=== PATIENT | female | born 1980 | race Caucasian/White ===

== ENCOUNTER 2018-08-30 14:57 | Inpatient (IN) | payer MEDICARE ==
[~2018-08-30] VITALS: Ht 162.6 cm; Wt 69.0 kg
--- NOTE | 2018-08-30 15:00 | NUR ---
patient arrives from [facility]. 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 medics gave 7.5 mg versed, 50 benadryl an zofran 4 mg. she arrives from [facility]. sh elives with parents she lives [address] [place] [address]. her parents are on cruise. gowned. in bed. rails up.
[2018-08-30] MEDS ORDERED: [UNRECOGNIZED DRUG - CODE] PO (15:23)
[2018-08-30] MEDS ORDERED: ONDA4TAB12 PO (15:23)
[2018-08-30] MEDS ORDERED: SUMA1TAB PO (15:23)
[2018-08-30] MEDS ORDERED: CHOL2000 PO (15:23)
[2018-08-30] MEDS ORDERED: FAMO20TA7 PO (15:23)
[2018-08-30] MEDS ORDERED: OMEP-110 PO (15:23)
[2018-08-30] MEDS ORDERED: LORA1TAB PO (15:23)
[2018-08-30] MEDS ORDERED: CARB200T4 PO (15:23)
[2018-08-30] MEDS ORDERED: ONDANSETRON 2MG/ML, 2ML ONE (16:39)
[2018-08-30] MEDS ORDERED: MORPHINE SULFATE 4 MG/ML, 1ML ONE ×2 (16:40→17:42)
[2018-08-30] MEDS: MORPHINE SULFATE 4 MG/ML, 1ML IVPush PRN ×2 (16:42→17:47)
--- NOTE | 2018-08-30 16:43 | NUR ---
requested valium from pharmacy, awaiting. patient tense and muscle spasming
[2018-08-30] MEDS ORDERED: DIPHENHYDRAMINE 50 MG/ML, 1ML ONE (16:57)
[2018-08-30] MEDS ORDERED: PLEASE ENTER ALLERGIES MC SCH (17:00)
[2018-08-30] MEDS ORDERED: DIAZEPAM 5 MG/ML, 2ML IV ONE (17:00)
[2018-08-30] MEDS ORDERED: ONDANSETRON 2MG/ML, 2ML IVPush ONE (17:00)
[2018-08-30] MEDS ORDERED: DIPHENHYDRAMINE 50 MG/ML, 1ML IVPush ONE (17:00)
--- NOTE | 2018-08-30 17:14 | NUR ---
patient feeling better after medications.
[2018-08-30 17:17] LABS: BASOPHILS # (AUTO) 0.04 x10^3/uL (0-0.1); BASOPHILS % (AUTO) 0 % (0-1); EOSINOPHILS # (AUTO) 0.09 x10^3/uL (0-0.4); EOSINOPHILS % (AUTO) 1 % (1-7); LYMPHOCYTES # (AUTO) 2.25 x10^3/uL (1-3.4); LYMPHOCYTES % (AUTO) 24 % (22-44); MD NO; MEAN CORPUSCULAR HGB CONC 34.7 g/dL (32.4-35.8); MEAN CORPUSCULAR VOLUME 89.4 fL (80-100); MEAN PLATELET VOLUME 7.2 fL (7.4-10.4); MONOCYTES # (AUTO) 0.71 x10^3/uL (0.2-0.8); MONOCYTES % (AUTO) 8 % (2-9); NEUTROPHILS # (AUTO) 6.31 x10^3/uL (1.8-6.8); NEUTROPHILS % (AUTO) 67 % (42-75); PLATELET COUNT 323 x10^3/uL (130-400); RED BLOOD COUNT 4.76 x10^6/uL (3.82-5.3); RED CELL DISTRIBUTION WIDTH 12.1 % (9.6-15.2)
[2018-08-30 17:30] LABS: ALBUMIN 4.5 g/dL (3.4-5.0); ANION GAP 8 mmol/L (5-15); CALCIUM 8.9 mg/dL (8.5-10.1); CHLORIDE 106 mmol/L (98-107)
[2018-08-30 17:34] LABS: ALANINE AMINOTRANSFERASE 33 U/L (12-78); ALKALINE PHOSPHATASE 92 U/L (45-117); BILIRUBIN,TOTAL 0.5 mg/dL (0.2-1.0); CREATININE 0.89 mg/dL (0.55-1.02); TOTAL PROTEIN 7.6 g/dL (6.4-8.2)
--- NOTE | 2018-08-30 18:12 | NUR ---
patient awaiting admission and bed.
[2018-08-30] MEDS ORDERED: CARB-139 PO (18:29)
[2018-08-30] MEDS ORDERED: METHOCARBAMOL 1,000 MG in DEXTROSE 5% 100 ML IV ONE (18:30)
--- NOTE | 2018-08-30 18:38 | NUR ---
calling for report
--- NOTE | 2018-08-30 18:39 | NUR ---
called to give report and they stated that this patient will go to a nightshift RN after 19:00
[2018-08-30] MEDS ORDERED: LABETALOL 5MG/ML, 20ML IVPush PRN (19:00)
[2018-08-30] MEDS ORDERED: LIDODERM 5% PATCH TD PRN (19:00)
[2018-08-30] MEDS ORDERED: BISACODYL 10 MG SUPP PR PRN (19:00)
[2018-08-30] MEDS ORDERED: ACETAMINOPHEN 325 MG TABLET PO PRN (19:00)
--- NOTE | 2018-08-30 19:13 | NUR ---
report given to karin cardenas
[2018-08-30 19:45] VITALS: BP 144/89
[2018-08-30] MEDS: ONDANSETRON ODT 4 MG PO PRN (20:21)
[2018-08-30] MEDS: KETOROLAC 30 MG/1 ML IV PRN (22:01)
[2018-08-30] MEDS: DIPHENHYDRAMINE 50 MG/ML, 1ML IVPush PRN (22:01)
[2018-08-30] MEDS: IMMUNE GLOB (GAMUNEX) 10GM/100ML IV SCH (22:02)
[2018-08-30] MEDS ORDERED: CARBAMAZEPINE XR 200 MG TABLET PO SCH (22:30)
[2018-08-30] MEDS ORDERED: POTA10TA11 PO (22:42)
[2018-08-30] MEDS ORDERED: AMIT25TA PO (22:44)
[2018-08-30] MEDS ORDERED: BACL5TAB PO (22:45)
[2018-08-30] MEDS: LORazepam 1MG TABLET PO SCH (22:46)
[2018-08-31] MEDS ORDERED: METOPROLOL TARTRATE 100 MG TABLET PO SCH
[2018-08-31] MEDS: FAMOTIDINE 20 MG TABLET PO SCH ×2 (00:31→21:13)
[2018-08-31] MEDS: CARBAMAZEPINE 200 MG TABLET PO SCH ×4 (00:31→21:13)
[2018-08-31] MEDS: AMITRIPTYLINE 25 MG TABLET PO SCH ×2 (00:31→21:13)
[2018-08-31 00:36] VITALS: BP 128/70
[2018-08-31] MEDS: KETOROLAC 30 MG/1 ML IV PRN ×2 (07:20→21:13)
[2018-08-31 07:46] VITALS: BP 117/81
[2018-08-31] MEDS: IMMUNE GLOB (GAMUNEX) 10GM/100ML IV SCH (10:00)
[2018-08-31] MEDS: OMEGA-3/FISH OIL CAPSULE PO SCH (10:01)
[2018-08-31] MEDS: LORazepam 1MG TABLET PO SCH ×3 (10:01→21:13)
[2018-08-31] MEDS: ONDANSETRON ODT 4 MG PO PRN ×2 (10:01→16:37)
[2018-08-31] MEDS: OMEPRAZOLE 20 MG CAPSULE.DR PO SCH (10:01)
[2018-08-31] MEDS: DIPHENHYDRAMINE 50 MG/ML, 1ML IVPush PRN (10:02)
[2018-08-31] MEDS: CHOLECALCIFEROL 1,000 UNIT TABLET PO SCH (10:02)
[2018-08-31 14:41] VITALS: BP 127/89
[2018-08-31 18:39] VITALS: BP 137/105
[2018-08-31] MEDS: METOPROLOL TARTRATE 100 MG TABLET PO SCH (18:42)
[2018-08-31] MEDS ORDERED: FAMOTIDINE 20 MG TABLET PO SCH (21:00)
[2018-09-01 02:00] VITALS: BP 118/79
[2018-09-01] MEDS ORDERED: METOPROLOL TARTRATE 100 MG TABLET PO SCH ×2 (06:00)
[2018-09-01] MEDS: ONDANSETRON ODT 4 MG PO PRN (06:26)
[2018-09-01] MEDS: KETOROLAC 30 MG/1 ML IV PRN (06:26)
[2018-09-01] MEDS ORDERED: IMMUNE GLOBULIN 80 GM in VIAL 0 EACH IV ONE (07:00)
[2018-09-01] MEDS: DIPHENHYDRAMINE 50 MG/ML, 1ML IVPush PRN (07:18)
[2018-09-01] MEDS ORDERED: POTASSIUM CHLORIDE 20 MEQ TAB.ER.PRT PO SCH (08:00)
[2018-09-01] MEDS: CHOLECALCIFEROL 1,000 UNIT TABLET PO SCH (08:29)
[2018-09-01] MEDS: OMEPRAZOLE 20 MG CAPSULE.DR PO SCH (08:29)
[2018-09-01] MEDS: LORazepam 1MG TABLET PO SCH ×2 (08:30→16:06)
[2018-09-01] MEDS: CARBAMAZEPINE 200 MG TABLET PO SCH ×2 (08:30→16:06)
[2018-09-01] MEDS: OMEGA-3/FISH OIL CAPSULE PO SCH (08:30)
[2018-09-01 08:34] VITALS: BP 136/94
[2018-09-01] MEDS ORDERED: DOCUSATE 100 MG CAPSULE PO SCH (09:00)
[2018-09-01 12:34] VITALS: BP 138/93
[2018-09-01] MEDS: METOPROLOL TARTRATE 100 MG TABLET PO SCH (18:00)
[2018-09-01 18:15] VITALS: BP 155/108
== END 2018-09-01 18:20 | disposition home or self-care (01) | DRG 93 ==
LOC: ED 16:12 → EDIP 18:03 → 3NE 19:25
PROVIDERS: ADMIT Hospitalist; ATTEND Hospitalist
PROC: 30233S1 Transfusion of Nonautologous Globulin into Peripheral Vein, Percutaneous Approach (ICD-10-PCS; principal; 2018-08-31)
DX: G71.19 Other specified myotonic disorders (principal); G43.909 Migraine, unspecified, not intractable, without status migrainosus; G72.81 Critical illness myopathy; I10 Essential (primary) hypertension
CPT/HCPCS: 36415; 80053; 82550; 85025; 96374; 96375; 96376; G0378; J1561; J1885; J2405; J3360; Q0162; J1200; J2800

== ENCOUNTER 2019-02-23 12:53 | Observation (INO) | payer MEDICARE ==
[~2019-02-23] VITALS: Ht 162.6 cm; Wt 61.1 kg
[~2019-02-23 12:53] MED LIST: AMIT25TA PO; BACL5TAB PO; CARB-139 PO; CARB200T4 PO; CHOL2000 PO; FAMO20TA7 PO; LORA1TAB PO; OMEP-110 PO; ONDA4TAB12 PO; POTA10TA11 PO; SUMA1TAB PO; [UNRECOGNIZED DRUG - CODE] PO
--- NOTE | 2019-02-23 13:25 | NUR ---
pt to ed for dizziness and head pressure since this morning, s/s worse with left lateral gaze. left sided weakness and left sided droop. pt states no changes from baseline. pt states recent change in tegretol dose. pt connected to monitors. vss. edmd present for assessment. awaiting orders.
[2019-02-23] MEDS ORDERED: DICYCLOMINE 20 MG TABLET PO ONE (13:30)
[2019-02-23] MEDS ORDERED: ONDANSETRON ODT 4 MG PO ONE (13:30)
[2019-02-23] MEDS ORDERED: LOPERAMIDE 2 MG CAPSULE PO ONE (13:30)
[2019-02-23] MEDS ORDERED: MECLIZINE CHEWABLE 25 MG TAB ONE (13:38)
--- NOTE | 2019-02-23 13:41 | NUR ---
edmd assessment complete and orders recevied. pt medicated per oct. no needseat this time. awaiting ct.
[2019-02-23 13:59] LABS: BASOPHILS # (AUTO) 0.05 x10^3/uL (0-0.1); BASOPHILS % (AUTO) 1 % (0-1); EOSINOPHILS # (AUTO) 0.11 x10^3/uL (0-0.4); EOSINOPHILS % (AUTO) 2 % (1-7); LYMPHOCYTES # (AUTO) 1.13 x10^3/uL (1-3.4); LYMPHOCYTES % (AUTO) 19 % (22-44); MD NO; MEAN CORPUSCULAR HEMOGLOBIN 31.1 pg (27.0-34.8); MEAN CORPUSCULAR HGB CONC 34.3 g/dL (32.4-35.8); MEAN CORPUSCULAR VOLUME 90.8 fL (80-100); MONOCYTES # (AUTO) 0.49 x10^3/uL (0.2-0.8); MONOCYTES % (AUTO) 8 % (2-9); NEUTROPHILS # (AUTO) 4.08 x10^3/uL (1.8-6.8); NEUTROPHILS % (AUTO) 70 % (42-75); PLATELET COUNT 296 x10^3/uL (130-400); RED BLOOD COUNT 3.97 x10^6/uL (3.82-5.3); RED CELL DISTRIBUTION WIDTH 12.6 % (9.6-15.2)
[2019-02-23] MEDS ORDERED: MECLIZINE CHEWABLE 25 MG TAB PO ONE (14:00)
[2019-02-23] MEDS ORDERED: SODIUM CHLORIDE FLUSH 10ML SYR IVF ONE (14:00)
--- NOTE | 2019-02-23 14:05 | NUR ---
pt back from ct.
[2019-02-23 14:10] LABS: ALANINE AMINOTRANSFERASE 33 U/L (12-78); ALBUMIN 3.5 g/dL (3.4-5.0); ANION GAP 6 mmol/L (5-15); CALCIUM 8.4 mg/dL (8.5-10.1); CHLORIDE 105 mmol/L (98-107)
[2019-02-23 14:15] LABS: ALKALINE PHOSPHATASE 83 U/L (45-117); BILIRUBIN,TOTAL 0.4 mg/dL (0.2-1.0); CREATININE 0.93 mg/dL (0.55-1.02); TOTAL PROTEIN 9.6 g/dL (6.4-8.2); TROPONIN I 0.025 ng/mL (0.000-0.045)
--- NOTE | 2019-02-23 14:26 | NUR ---
pt resting in room wtih family at bs. vss. no needs expressed. awaiting lab results.
[2019-02-23] MEDS ORDERED: BENZ200C48 PO (14:52)
[2019-02-23] MEDS ORDERED: ALBU2.5V NEB (14:52)
[2019-02-23] MEDS ORDERED: METO-99 PO (14:57)
[2019-02-23] MEDS ORDERED: DIPH25CA61 PO (15:02)
[2019-02-23] MEDS ORDERED: ONDANSETRON ODT 4 MG PO PRN (15:30)
[2019-02-23] MEDS ORDERED: ONDANSETRON 2MG/ML, 2ML IVPush PRN (15:30)
[2019-02-23] MEDS ORDERED: AMITRIPTYLINE 25 MG TABLET PO PRN (15:30)
[2019-02-23] MEDS ORDERED: SUMATRIPTAN 25 MG TABLET PO PRN (15:30)
[2019-02-23] MEDS ORDERED: BISACODYL 10 MG SUPP PR PRN (15:30)
[2019-02-23] MEDS ORDERED: LABETALOL 5MG/ML, 20ML IVPush PRN (15:30)
[2019-02-23] MEDS ORDERED: DIPHENHYDRAMINE 25 MG CAPSULE PO PRN (15:30)
[2019-02-23] MEDS ORDERED: ENALAPRILAT 1.25 MG/ML, 2ML IVPush PRN (15:30)
[2019-02-23] MEDS ORDERED: POLYETHYLENE GLYCOL 17 GM PACKET PO PRN (15:30)
[2019-02-23] MEDS ORDERED: ACETAMINOPHEN 325 MG TABLET PO PRN (15:30)
[2019-02-23] MEDS ORDERED: DOCUSATE 100 MG CAPSULE PO PRN (15:30)
--- NOTE | 2019-02-23 15:58 | NUR ---
report to jamaal garcia. pt ready for transport.
[2019-02-23] MEDS ORDERED: MECLIZINE CHEWABLE 25 MG TAB PO PRN (16:00)
[2019-02-23 16:19] VITALS: BP 137/95
[2019-02-23 16:21] VITALS: BP 137/95
[2019-02-23] MEDS: CARBAMAZEPINE XR 200 MG TABLET PO SCH ×2 (16:50→20:46)
[2019-02-23 17:46] LABS: TROPONIN I 0.022 ng/mL (0.000-0.045)
[2019-02-23 17:51] LABS: THYROID STIMULATING HORMONE 0.752 mIU/L (0.358-3.740)
[2019-02-23] MEDS ORDERED: SUMATRIPTAN 100 MG TABLET PO PRN (18:00)
[2019-02-23] MEDS ORDERED: LORazepam 1MG TABLET PO PRN (18:00)
[2019-02-23 19:13] VITALS: BP 125/85
[2019-02-23] MEDS: POTASSIUM CHLORIDE 20 MEQ TAB.ER.PRT PO SCH (20:46)
[2019-02-23] MEDS ORDERED: FAMOTIDINE 20 MG TABLET PO SCH (21:00)
[2019-02-24 01:03] VITALS: BP 134/83
[2019-02-24 07:06] VITALS: BP 150/95
[2019-02-24] MEDS ORDERED: GADOBUTROL 7.5 MMOL/7.5 ML PFS ONE (08:52)
[2019-02-24] MEDS ORDERED: OMEGA-3/FISH OIL CAPSULE PO SCH (09:00)
[2019-02-24] MEDS ORDERED: METOPROLOL TARTRATE 100 MG TABLET PO SCH (09:00)
[2019-02-24] MEDS ORDERED: CHOLECALCIFEROL 1,000 UNIT TABLET PO SCH (09:00)
[2019-02-24] MEDS ORDERED: OMEPRAZOLE 20 MG CAPSULE.DR PO SCH (09:00)
[2019-02-24] MEDS: POTASSIUM CHLORIDE 20 MEQ TAB.ER.PRT PO SCH (09:12)
[2019-02-24] MEDS: CARBAMAZEPINE XR 200 MG TABLET PO SCH (09:12)
[2019-02-24 10:24] LABS: BASOPHILS # (AUTO) 0.02 x10^3/uL (0-0.1); BASOPHILS % (AUTO) 0 % (0-1); EOSINOPHILS # (AUTO) 0.14 x10^3/uL (0-0.4); EOSINOPHILS % (AUTO) 3 % (1-7); LYMPHOCYTES # (AUTO) 1.14 x10^3/uL (1-3.4); LYMPHOCYTES % (AUTO) 24 % (22-44); MD NO; MEAN CORPUSCULAR HEMOGLOBIN 31.7 pg (27.0-34.8); MEAN CORPUSCULAR HGB CONC 34.6 g/dL (32.4-35.8); MEAN CORPUSCULAR VOLUME 91.7 fL (80-100); MEAN PLATELET VOLUME 7.4 fL (7.4-10.4); MONOCYTES # (AUTO) 0.46 x10^3/uL (0.2-0.8); MONOCYTES % (AUTO) 10 % (2-9); NEUTROPHILS % (AUTO) 63 % (42-75); PLATELET COUNT 317 x10^3/uL (130-400); RED BLOOD COUNT 4.07 x10^6/uL (3.82-5.3); RED CELL DISTRIBUTION WIDTH 12.5 % (9.6-15.2)
[2019-02-24 10:28] LABS: ANION GAP 8 mmol/L (5-15); CALCIUM 8.6 mg/dL (8.5-10.1); CHLORIDE 106 mmol/L (98-107)
[2019-02-24 10:29] LABS: CREATININE 0.83 mg/dL (0.55-1.02)
== END 2019-02-24 13:07 | disposition home or self-care (01) ==
LOC: ED 15:24 → INTOOBSV 15:35 → EDIP 15:35 → 4EST 15:56 → DCLOUNGE 02-24 13:07
PROVIDERS: ADMIT Hospitalist; ATTEND Hospitalist
DX: R55 Syncope and collapse (principal); I10 Essential (primary) hypertension; I16.0 Hypertensive urgency; H53.9 Unspecified visual disturbance; G71.19 Other specified myotonic disorders; G89.29 Other chronic pain; R56.9 Unspecified convulsions; G04.81 Other encephalitis and encephalomyelitis; Z79.899 Other long term (current) drug therapy
CPT/HCPCS: 36415; 70450; 70553; 80048; 80053; 80156; 84443; 84484; 85025; 93005; 99284; A9585; G0378; Q0162; 99285

== ENCOUNTER 2019-06-18 09:09 | Emergency (ER) | payer MEDICARE ==
[~2019-06-18] VITALS: Ht 162.6 cm; Wt 52.3 kg
[~2019-06-18 09:09] MED LIST changes: +ALBU2.5V NEB; +BENZ200C48 PO; +DIPH25CA61 PO; +METO-99 PO
[2019-06-18] MEDS ORDERED: ONDANSETRON 2MG/ML, 2ML IVPush ONE (09:30)
[2019-06-18] MEDS ORDERED: SODIUM CHLORIDE 0.9% 1,000ML IVBOLUS ONE (09:30)
[2019-06-18] MEDS ORDERED: FAMOTIDINE 20 MG/2 ML IVPush ONE (09:30)
[2019-06-18] MEDS ORDERED: SODIUM CHLORIDE FLUSH 10ML SYR IVF ONE (09:30)
[2019-06-18 09:56] LABS: BASOPHILS # (AUTO) 0.01 x10^3/uL (0-0.1); BASOPHILS % (AUTO) 0 % (0-1); EOSINOPHILS # (AUTO) 0.07 x10^3/uL (0-0.4); EOSINOPHILS % (AUTO) 1 % (1-7); LYMPHOCYTES # (AUTO) 0.63 x10^3/uL (1-3.4); LYMPHOCYTES % (AUTO) 10 % (22-44); MD NO; MEAN CORPUSCULAR VOLUME 91.2 fL (80-100); MEAN PLATELET VOLUME 7.4 fL (7.4-10.4); MONOCYTES % (AUTO) 7 % (2-9); NEUTROPHILS # (AUTO) 4.99 x10^3/uL (1.8-6.8); NEUTROPHILS % (AUTO) 82 % (42-75); PLATELET COUNT 259 x10^3/uL (130-400); RED BLOOD COUNT 4.33 x10^6/uL (3.82-5.3); RED CELL DISTRIBUTION WIDTH 14.1 % (9.6-15.2)
[2019-06-18] MEDS ORDERED: FAMOTIDINE 20 MG/2 ML ONE (10:01)
[2019-06-18] MEDS ORDERED: ONDANSETRON 2MG/ML, 2ML ONE (10:01)
[2019-06-18 10:06] LABS: ALANINE AMINOTRANSFERASE 30 U/L (12-78); ALBUMIN 4.1 g/dL (3.4-5.0); ANION GAP 5 mmol/L (5-15); CALCIUM 8.5 mg/dL (8.5-10.1); CHLORIDE 106 mmol/L (98-107); CREATININE 0.95 mg/dL (0.55-1.02)
[2019-06-18 10:11] LABS: ALKALINE PHOSPHATASE 70 U/L (45-117); BILIRUBIN,TOTAL 0.9 mg/dL (0.2-1.0); TOTAL PROTEIN 8.4 g/dL (6.4-8.2)
--- NOTE | 2019-06-18 10:13 | NUR ---
PT COMPLAINS OF N/V/D X 24 HOURS. PT THREW UP ZOFRAN AT HOME, NO RELIEF FROM PRN MEDICATIONS. CHEST PORT ACCESSED, MASKS AT BEDSIDE. IV FLUIDS AND MEDICATIONS STARTED PER ORDERS. PT DENIES ANY FURTHER NEEDS OR CONCERNS AT THIS TIME. CALL LIGHT IN REACH.
[2019-06-18] MEDS ORDERED: DIPHENHYDRAMINE 50 MG/ML, 1ML IVPush PRN (11:30)
[2019-06-18] MEDS ORDERED: LORazepam 2 MG/ML, 1ML IVPush ONE (11:30)
[2019-06-18] MEDS ORDERED: LORazepam 2 MG/ML, 1ML ONE (11:43)
[2019-06-18] MEDS ORDERED: DIPHENHYDRAMINE 50 MG/ML, 1ML ONE (11:43)
[2019-06-18 11:50] LABS: MICROSCOPIC AUTO
[2019-06-18 11:51] LABS: CULTURE INDICATED? YES
[2019-06-18 12:49] VITALS: BP 148/99
[2019-06-19] MEDS ORDERED: IMMU20VI IV (16:06)
== END 2019-06-18 12:50 | disposition home or self-care (01) ==
LOC: ED 10:39
DX: K52.9 Noninfective gastroenteritis and colitis, unspecified (principal); I10 Essential (primary) hypertension
CPT/HCPCS: 36415; 80053; 81001; 83690; 84703; 85025; 87086; 96361; 96374; 96375; 99283; J1200; J2060; J2405; J3490; J7030

== ENCOUNTER 2019-06-19 12:45 | Inpatient (IN) | payer MEDICARE ==
[~2019-06-19] VITALS: Ht 162.6 cm; Wt 58.2 kg
--- NOTE | 2019-06-19 13:10 | NUR ---
PATIENT MAYTE IN BY TIM. TIM WAS CALLED BY HER ROOMATE WHO FOUND HER UNRESPONSIVE AND STATED THAT SHE HAS NEVER SEEN HER LIKE THIS. MOTHER IS AT BEDSIDE AND SHE STATES THAT BANG HAS THESE EPISODES MULTIPLE TIMES A DAY AND HER CURRENT STATUS IS NORMAL FOR HER. SHE STATES THAT SHE WILL COME OUT OF IT. EPISODES PRECIPITATED BY STRESS, ILLNESS AND SUDDEN ENVIROMENTAL CHANGES (SOMEONE SCARING HER). PATIENT SPEAKS IN SLOW SLURRED SENTENCES BUT IS BREATHING NORMALLY. BANG IS ABLE TO TEXT THAT SHE IS IN 8/10 PAIN.
[2019-06-19] MEDS ORDERED: LORazepam 2 MG/ML, 1ML IVPush ONE (14:00)
[2019-06-19] MEDS ORDERED: HYDROmorphone 1 MG/ML, 1ML INJ IVPush PRN (14:00)
[2019-06-19] MEDS ORDERED: ONDANSETRON 2MG/ML, 2ML IVPush ONE (14:00)
[2019-06-19] MEDS ORDERED: DIPHENHYDRAMINE 50 MG/ML, 1ML IVPush ONE (14:00)
[2019-06-19] MEDS ORDERED: LORazepam 2 MG/ML, 1ML ONE (14:15)
[2019-06-19] MEDS ORDERED: DIPHENHYDRAMINE 50 MG/ML, 1ML ONE ×2 (14:16→18:56)
[2019-06-19] MEDS ORDERED: HYDROmorphone 1 MG/ML, 1ML VIAL ONE (14:16)
[2019-06-19] MEDS ORDERED: ONDANSETRON 2MG/ML, 2ML ONE (14:16)
[2019-06-19] MEDS ORDERED: SODIUM CHLORIDE FLUSH 10ML SYR IVF ONE (14:30)
--- NOTE | 2019-06-19 14:32 | NUR ---
PATIENT PLACED ON BED DICKERSON.
[2019-06-19 14:44] LABS: BASOPHILS # (AUTO) 0.01 x10^3/uL (0-0.1); BASOPHILS % (AUTO) 0 % (0-1); EOSINOPHILS # (AUTO) 0.07 x10^3/uL (0-0.4); EOSINOPHILS % (AUTO) 1 % (1-7); LYMPHOCYTES # (AUTO) 1.08 x10^3/uL (1-3.4); LYMPHOCYTES % (AUTO) 17 % (22-44); MD NO; MEAN CORPUSCULAR HEMOGLOBIN 31.5 pg (27.0-34.8); MEAN CORPUSCULAR HGB CONC 34.1 g/dL (32.4-35.8); MEAN CORPUSCULAR VOLUME 92.3 fL (80-100); MEAN PLATELET VOLUME 7.7 fL (7.4-10.4); MONOCYTES % (AUTO) 6 % (2-9); NEUTROPHILS % (AUTO) 75 % (42-75); PLATELET COUNT 266 x10^3/uL (130-400)
[2019-06-19 14:47] LABS: ALBUMIN 3.8 g/dL (3.4-5.0); ANION GAP 3 mmol/L (5-15); CALCIUM 8.6 mg/dL (8.5-10.1); CHLORIDE 111 mmol/L (98-107)
[2019-06-19 14:50] LABS: ALANINE AMINOTRANSFERASE 31 U/L (12-78); ALKALINE PHOSPHATASE 64 U/L (45-117); BILIRUBIN,TOTAL 0.5 mg/dL (0.2-1.0); CREATINE KINASE, TOTAL 186 U/L (26-192); CREATININE 0.83 mg/dL (0.55-1.02); TOTAL PROTEIN 7.6 g/dL (6.4-8.2)
--- NOTE | 2019-06-19 14:52 | NUR ---
PATIENT MEDICATED WITH 1MG OF DILAUDID, 1MG OF ATIVAN, 50MG BENADRYL, 4MG OF ZOFRAN.
--- NOTE | 2019-06-19 16:00 | NUR ---
PATIENT IN ROOM CONVERSATING WITH STAFF. HER PHYSICAL STATUS HAS IMPROVED SINCE ARRIVAL. DENIES FURTHER NEEDS AT THIS TIME. WILL CONTINUE TO MONITOR.
[2019-06-19] MEDS ORDERED: IMMU20VI IV (16:06)
--- NOTE | 2019-06-19 16:55 | NUR ---
ADMITTING PROVIDER AT BEDSIDE.
--- NOTE | 2019-06-19 17:12 | NUR ---
SBAR TELEPHONE HAND-OFF REPORT GIVEN TO KIM SAAVEDRA.
[2019-06-19] MEDS ORDERED: IMMUNE GLOB IV SCH (17:30)
[2019-06-19] MEDS ORDERED: ONDANSETRON ODT 4 MG PO PRN (17:30)
[2019-06-19] MEDS ORDERED: LORazepam 1MG TABLET PO PRN (17:30)
[2019-06-19] MEDS ORDERED: LORazepam 2 MG/ML, 1ML IVPush PRN (17:30)
[2019-06-19] MEDS: IMMUNE GLOBULIN 60 GM in VIAL 0 EACH IV SCH (18:00)
[2019-06-19] MEDS: SODIUM CHLORIDE 0.9% 1,000 ML IV SCH (18:16)
[2019-06-19 20:00] VITALS: BP 139/93
[2019-06-19] MEDS: FAMOTIDINE 40 MG TABLET PO SCH (21:44)
[2019-06-19 22:41] VITALS: BP 120/85
[2019-06-20] MEDS: DIPHENHYDRAMINE 25 MG CAPSULE PO PRN ×2 (00:25→06:32)
[2019-06-20] MEDS: AMITRIPTYLINE 25 MG TABLET PO PRN ×2 (00:25→23:12)
[2019-06-20] MEDS: IMMUNE GLOBULIN 60 GM in VIAL 0 EACH IV SCH (00:28)
[2019-06-20 01:41] VITALS: BP 117/84
[2019-06-20 01:50] VITALS: BP 109/73
[2019-06-20 04:02] VITALS: BP 125/86
[2019-06-20 05:10] LABS: ALBUMIN 3.4 g/dL (3.4-5.0); ANION GAP 4 mmol/L (5-15); CALCIUM 8.2 mg/dL (8.5-10.1); CHLORIDE 106 mmol/L (98-107)
[2019-06-20 05:15] LABS: ALANINE AMINOTRANSFERASE 23 U/L (12-78); ALKALINE PHOSPHATASE 55 U/L (45-117); BILIRUBIN,TOTAL 0.4 mg/dL (0.2-1.0); CREATININE 1.05 mg/dL (0.55-1.02); TOTAL PROTEIN 8.1 g/dL (6.4-8.2)
[2019-06-20 05:16] LABS: BASOPHILS # (AUTO) 0.02 x10^3/uL (0-0.1); BASOPHILS % (AUTO) 1 % (0-1); EOSINOPHILS # (AUTO) 0.18 x10^3/uL (0-0.4); EOSINOPHILS % (AUTO) 4 % (1-7); LYMPHOCYTES # (AUTO) 1.14 x10^3/uL (1-3.4); LYMPHOCYTES % (AUTO) 26 % (22-44); MD NO; MEAN CORPUSCULAR HEMOGLOBIN 30.9 pg (27.0-34.8); MEAN CORPUSCULAR HGB CONC 33.5 g/dL (32.4-35.8); MEAN CORPUSCULAR VOLUME 92.4 fL (80-100); MEAN PLATELET VOLUME 7.8 fL (7.4-10.4); MONOCYTES # (AUTO) 0.61 x10^3/uL (0.2-0.8); MONOCYTES % (AUTO) 14 % (2-9); NEUTROPHILS # (AUTO) 2.47 x10^3/uL (1.8-6.8); NEUTROPHILS % (AUTO) 56 % (42-75); PLATELET COUNT 246 x10^3/uL (130-400); RED BLOOD COUNT 3.83 x10^6/uL (3.82-5.3); RED CELL DISTRIBUTION WIDTH 13.9 % (9.6-15.2)
[2019-06-20 06:45] VITALS: BP 135/87
[2019-06-20] MEDS: CHOLECALCIFEROL 1,000 UNIT TABLET PO SCH (07:49)
[2019-06-20] MEDS: METOPROLOL TARTRATE 100 MG TABLET PO SCH (07:50)
[2019-06-20] MEDS: OMEPRAZOLE 20 MG CAPSULE.DR PO SCH (07:51)
[2019-06-20] MEDS ORDERED: DIPH25CA61 PO (07:57)
[2019-06-20] MEDS: SODIUM CHLORIDE 0.9% 1,000 ML IV SCH ×2 (08:05→17:05)
[2019-06-20] MEDS ORDERED: DIPHENHYDRAMINE 50 MG CAPSULE PO PRN (09:00)
[2019-06-20] MEDS: SUMATRIPTAN SUCC PO SCH (09:00)
[2019-06-20] MEDS: [UNRECOGNIZED DRUG - OTHER] PO SCH (09:00)
[2019-06-20] MEDS ORDERED: ONDANSETRON 4 MG TABLET PO SCH (09:00)
[2019-06-20] MEDS: NAPROXEN SOD PO SCH (09:00)
[2019-06-20] MEDS: ONDANSETRON 4 MG TABLET PO SCH (10:05)
[2019-06-20] MEDS: POTASSIUM CHLORIDE 20 MEQ TAB.ER.PRT PO SCH (10:06)
[2019-06-20 12:48] VITALS: BP 134/92
[2019-06-20] MEDS: ONDANSETRON 2MG/ML, 2ML IVPush PRN ×2 (16:59→23:13)
[2019-06-20] MEDS: LORazepam 2 MG/ML, 1ML IVPush PRN ×2 (16:59→23:13)
[2019-06-20] MEDS: DIPHENHYDRAMINE 50 MG/ML, 1ML IVPush PRN ×2 (17:52→23:13)
[2019-06-20 19:08] VITALS: BP 108/69
[2019-06-20] MEDS ORDERED: AMITRIPTYLINE 50 MG TABLET ONE (23:05)
[2019-06-20] MEDS: ACETAMINOPHEN 325 MG TABLET PO PRN (23:12)
[2019-06-20] MEDS: FAMOTIDINE 40 MG TABLET PO SCH (23:12)
[2019-06-21] VITALS (7 sets, daily range): BP systolic 120–148; BP diastolic 82–100
[2019-06-21] MEDS ORDERED: LORazepam 2 MG/ML, 1ML IVPush ONE (02:00)
[2019-06-21] MEDS: IMMUNE GLOBULIN 60 GM in VIAL 0 EACH IV SCH (05:10)
[2019-06-21] MEDS: SODIUM CHLORIDE 0.9% 1,000 ML IV SCH ×2 (05:18→20:29)
[2019-06-21] MEDS: LORazepam 2 MG/ML, 1ML IVPush PRN ×4 (05:27→20:28)
[2019-06-21] MEDS: ACETAMINOPHEN 325 MG TABLET PO PRN (05:27)
[2019-06-21] MEDS: ONDANSETRON 2MG/ML, 2ML IVPush PRN ×2 (05:27→15:15)
[2019-06-21] MEDS: DIPHENHYDRAMINE 50 MG/ML, 1ML IVPush PRN ×3 (05:27→20:28)
[2019-06-21 07:21] LABS: ALANINE AMINOTRANSFERASE 21 U/L (12-78); ALBUMIN 3.4 g/dL (3.4-5.0); ANION GAP 6 mmol/L (5-15); CALCIUM 8.3 mg/dL (8.5-10.1); CHLORIDE 108 mmol/L (98-107)
[2019-06-21 07:24] LABS: ALKALINE PHOSPHATASE 54 U/L (45-117); BILIRUBIN,TOTAL 0.4 mg/dL (0.2-1.0); CREATININE 0.94 mg/dL (0.55-1.02); TOTAL PROTEIN 9.1 g/dL (6.4-8.2)
[2019-06-21 07:27] LABS: BASOPHILS # (AUTO) 0.02 x10^3/uL (0-0.1); BASOPHILS % (AUTO) 1 % (0-1); EOSINOPHILS # (AUTO) 0.09 x10^3/uL (0-0.4); EOSINOPHILS % (AUTO) 3 % (1-7); LYMPHOCYTES # (AUTO) 0.72 x10^3/uL (1-3.4); LYMPHOCYTES % (AUTO) 21 % (22-44); MD NO; MEAN CORPUSCULAR VOLUME 91.1 fL (80-100); MONOCYTES # (AUTO) 0.36 x10^3/uL (0.2-0.8); MONOCYTES % (AUTO) 11 % (2-9); NEUTROPHILS % (AUTO) 65 % (42-75); PLATELET COUNT 218 x10^3/uL (130-400); RED CELL DISTRIBUTION WIDTH 13.7 % (9.6-15.2)
[2019-06-21] MEDS: [UNRECOGNIZED DRUG - OTHER] PO SCH (09:00)
[2019-06-21] MEDS: NAPROXEN SOD PO SCH (09:00)
[2019-06-21] MEDS: SUMATRIPTAN SUCC PO SCH (09:00)
[2019-06-21] MEDS: METOPROLOL TARTRATE 100 MG TABLET PO SCH (10:15)
[2019-06-21] MEDS: POTASSIUM CHLORIDE 20 MEQ TAB.ER.PRT PO SCH (10:15)
[2019-06-21] MEDS: CHOLECALCIFEROL 1,000 UNIT TABLET PO SCH (10:15)
[2019-06-21] MEDS: OMEPRAZOLE 20 MG CAPSULE.DR PO SCH (10:15)
[2019-06-21] MEDS: ONDANSETRON 4 MG TABLET PO SCH (10:18)
[2019-06-21] MEDS: FAMOTIDINE 40 MG TABLET PO SCH (20:28)
[2019-06-21] MEDS ORDERED: AMITRIPTYLINE 50 MG TABLET ONE (20:32)
[2019-06-21] MEDS: AMITRIPTYLINE 25 MG TABLET PO PRN (20:35)
[2019-06-22] MEDS: DIPHENHYDRAMINE 50 MG/ML, 1ML IVPush PRN ×3 (01:35→12:31)
[2019-06-22] MEDS: ONDANSETRON 2MG/ML, 2ML IVPush PRN ×2 (01:35→07:47)
[2019-06-22] MEDS: LORazepam 2 MG/ML, 1ML IVPush PRN ×3 (01:35→12:31)
[2019-06-22 01:55] VITALS: BP 138/96
[2019-06-22 05:55] LABS: BASOPHILS # (AUTO) 0.02 x10^3/uL (0-0.1); BASOPHILS % (AUTO) 1 % (0-1); EOSINOPHILS % (AUTO) 3 % (1-7); LYMPHOCYTES # (AUTO) 0.84 x10^3/uL (1-3.4); LYMPHOCYTES % (AUTO) 24 % (22-44); MD NO; MEAN CORPUSCULAR HEMOGLOBIN 31.2 pg (27.0-34.8); MEAN CORPUSCULAR HGB CONC 34.5 g/dL (32.4-35.8); MEAN CORPUSCULAR VOLUME 90.4 fL (80-100); MONOCYTES # (AUTO) 0.44 x10^3/uL (0.2-0.8); MONOCYTES % (AUTO) 12 % (2-9); NEUTROPHILS # (AUTO) 2.19 x10^3/uL (1.8-6.8); NEUTROPHILS % (AUTO) 61 % (42-75); PLATELET COUNT 223 x10^3/uL (130-400); RED BLOOD COUNT 3.77 x10^6/uL (3.82-5.3); RED CELL DISTRIBUTION WIDTH 13.2 % (9.6-15.2)
[2019-06-22 06:07] LABS: ALBUMIN 3.3 g/dL (3.4-5.0); ANION GAP 4 mmol/L (5-15); CALCIUM 8.2 mg/dL (8.5-10.1); CHLORIDE 106 mmol/L (98-107)
[2019-06-22 06:12] LABS: ALANINE AMINOTRANSFERASE 22 U/L (12-78); ALKALINE PHOSPHATASE 51 U/L (45-117); BILIRUBIN,TOTAL 0.5 mg/dL (0.2-1.0); CREATININE 0.87 mg/dL (0.55-1.02); TOTAL PROTEIN 9.8 g/dL (6.4-8.2)
[2019-06-22 07:18] VITALS: BP 155/95
[2019-06-22] MEDS: POTASSIUM CHLORIDE 20 MEQ TAB.ER.PRT PO SCH (07:48)
[2019-06-22] MEDS: NAPROXEN SOD PO SCH (08:08)
[2019-06-22] MEDS: [UNRECOGNIZED DRUG - OTHER] PO SCH (08:08)
[2019-06-22] MEDS: SUMATRIPTAN SUCC PO SCH (08:08)
[2019-06-22] MEDS: CHOLECALCIFEROL 1,000 UNIT TABLET PO SCH (09:27)
[2019-06-22] MEDS: OMEPRAZOLE 20 MG CAPSULE.DR PO SCH (09:27)
[2019-06-22] MEDS: ONDANSETRON 4 MG TABLET PO SCH (09:27)
[2019-06-22] MEDS: METOPROLOL TARTRATE 100 MG TABLET PO SCH (09:27)
[2019-06-22 12:38] VITALS: BP 147/106
[2019-06-22] MEDS ORDERED: FLU VACC QS2019-20 36MOS UP/PF 0.5 ML IM-VACC ONE (14:00)
== END 2019-06-22 14:41 | disposition home health service (06) | DRG 93 ==
LOC: ED 15:44 → EDIP 17:06 → 3N 17:25 → 4EST 20:06
PROVIDERS: ADMIT Internal Medicine; ATTEND Hospitalist
DX: G71.19 Other specified myotonic disorders (principal); G98.8 Other disorders of nervous system; G43.809 Other migraine, not intractable, without status migrainosus; G89.29 Other chronic pain; I10 Essential (primary) hypertension; Z79.899 Other long term (current) drug therapy; Z80.42 Family history of malignant neoplasm of prostate; Z80.8 Family history of malignant neoplasm of other organs or systems
CPT/HCPCS: 36415; 80053; 81001; 82550; 82962; 83605; 83690; 83735; 84100; 84703; 85025; 87086; 90686; 96374; 96375; G0378; J1170; J1561; J2405; Q0162; J1200; J2060; J7030; Q0163

== ENCOUNTER 2019-07-18 12:17 | Emergency (ER) | payer MEDICARE ==
[~2019-07-18] VITALS: Ht 162.6 cm; Wt 54.3 kg
[~2019-07-18 12:17] MED LIST changes: +IMMU20VI IV
[2019-07-18] MEDS ORDERED: SODIUM CHLORIDE 0.9% 1,000 ML IV ONE (12:21)
[2019-07-18] MEDS ORDERED: SODIUM CHLORIDE FLUSH 10ML SYR IVF ONE (12:30)
--- NOTE | 2019-07-18 12:33 | NUR ---
BIB [facility]. PT ROOMMATE FOUND PT IN TONIC POSITIONING, HX [facility] (NEURO LEELEE TONIC). PT HAS THESE EPISODES EVERY COUPLE WEEKS. HOUSEHOLD APPLIANCE MECHANIC [facility], 5 VERSED, 50 BENADRYL, 4 ZOFRAN. CONNECTED TO MONITORING. CALL LIGHT IN REACH. LAB AT BEDSIDE.
[2019-07-18 12:45] LABS: BASOPHILS # (AUTO) 0.05 x10^3/uL (0-0.1); BASOPHILS % (AUTO) 1 % (0-1); EOSINOPHILS % (AUTO) 1 % (1-7); LYMPHOCYTES # (AUTO) 1.24 x10^3/uL (1-3.4); LYMPHOCYTES % (AUTO) 16 % (22-44); MD NO; MEAN CORPUSCULAR HEMOGLOBIN 31.1 pg (27.0-34.8); MEAN CORPUSCULAR HGB CONC 33.5 g/dL (32.4-35.8); MEAN CORPUSCULAR VOLUME 92.8 fL (80-100); MONOCYTES % (AUTO) 8 % (2-9); NEUTROPHILS # (AUTO) 5.67 x10^3/uL (1.8-6.8); NEUTROPHILS % (AUTO) 74 % (42-75); PLATELET COUNT 240 x10^3/uL (130-400); RED BLOOD COUNT 4.32 x10^6/uL (3.82-5.3); RED CELL DISTRIBUTION WIDTH 12.6 % (9.6-15.2)
[2019-07-18 12:56] LABS: ALBUMIN 3.6 g/dL (3.4-5.0); ANION GAP 3 mmol/L (5-15); CALCIUM 8.9 mg/dL (8.5-10.1); CHLORIDE 107 mmol/L (98-107); CREATININE 0.87 mg/dL (0.55-1.02)
--- NOTE | 2019-07-18 13:00 | NUR ---
ALL RESULTS ARE BACK AT THIS TIME. CHART UP FOR RECHECK.
--- NOTE | 2019-07-18 13:55 | NUR ---
PT RESTING COMFORTABLY ON GURNEY. KIRBY.
[2019-07-18] MEDS ORDERED: DIPHENHYDRAMINE 50 MG/ML, 1ML ONE (15:19)
[2019-07-18] MEDS ORDERED: HYDROmorphone 1 MG/ML, 1ML VIAL ONE (15:20)
[2019-07-18] MEDS ORDERED: LORazepam 2 MG/ML, 1ML ONE (15:20)
--- NOTE | 2019-07-18 15:29 | NUR ---
MEDS ADMIN PER HERMELINDO. PT RESTING ON GURNEY. ORR. PT STATES FRIEND IS ON WAY TO TAKE HER HOME.
[2019-07-18] MEDS ORDERED: HYDROmorphone 2 MG/ML, 1ML IVPush ONE (15:30)
[2019-07-18] MEDS ORDERED: DIPHENHYDRAMINE 50 MG/ML, 1ML IVPush ONE (15:30)
[2019-07-18] MEDS ORDERED: LORazepam 2 MG/ML, 1ML IVPush ONE (15:30)
[2019-07-18 16:37] VITALS: BP 135/88
== END 2019-07-18 16:40 | disposition home or self-care (01) ==
LOC: ED 16:10
DX: G04.81 Other encephalitis and encephalomyelitis (principal); R53.1 Weakness; I10 Essential (primary) hypertension
CPT/HCPCS: 36415; 80048; 82040; 83735; 85025; 96374; 96375; 99283; J1170; J1200; J2060; J7030

== ENCOUNTER 2019-07-19 12:46 | Emergency (ER) | payer MEDICARE ==
[~2019-07-19] VITALS: Ht 160 cm; Wt 51.2 kg
[2019-07-19 13:40] LABS: BASOPHILS # (AUTO) 0.02 x10^3/uL (0-0.1); BASOPHILS % (AUTO) 0 % (0-1); EOSINOPHILS # (AUTO) 0.06 x10^3/uL (0-0.4); EOSINOPHILS % (AUTO) 1 % (1-7); LYMPHOCYTES # (AUTO) 1.25 x10^3/uL (1-3.4); LYMPHOCYTES % (AUTO) 18 % (22-44); MD NO; MEAN CORPUSCULAR HEMOGLOBIN 30.5 pg (27.0-34.8); MEAN CORPUSCULAR HGB CONC 33.4 g/dL (32.4-35.8); MEAN CORPUSCULAR VOLUME 91.4 fL (80-100); MEAN PLATELET VOLUME 7.5 fL (7.4-10.4); MONOCYTES # (AUTO) 0.41 x10^3/uL (0.2-0.8); MONOCYTES % (AUTO) 6 % (2-9); NEUTROPHILS # (AUTO) 5.24 x10^3/uL (1.8-6.8); NEUTROPHILS % (AUTO) 75 % (42-75); PLATELET COUNT 262 x10^3/uL (130-400); RED BLOOD COUNT 4.43 x10^6/uL (3.82-5.3); RED CELL DISTRIBUTION WIDTH 12.6 % (9.6-15.2)
[2019-07-19 13:52] LABS: ALANINE AMINOTRANSFERASE 38 U/L (12-78); ALBUMIN 3.8 g/dL (3.4-5.0); ANION GAP 7 mmol/L (5-15); CALCIUM 8.6 mg/dL (8.5-10.1); CHLORIDE 106 mmol/L (98-107); CREATININE 0.85 mg/dL (0.55-1.02)
[2019-07-19 13:55] LABS: ALKALINE PHOSPHATASE 70 U/L (45-117); BILIRUBIN,TOTAL 0.5 mg/dL (0.2-1.0); CREATINE KINASE, TOTAL 44 U/L (26-192); TOTAL PROTEIN 7.7 g/dL (6.4-8.2)
[2019-07-19] MEDS ORDERED: HYDROmorphone 2 MG/ML, 1ML IVPush PRN (14:30)
--- NOTE | 2019-07-19 14:44 | NUR ---
PT HAD 3 EPISODES WHERE SHE STIFFENED UP WHILE IN CT. WHEN LEAVING SHE SEEMED TO HAVE A MORE SERIOUS ONE, SHE STOPPED TALKING/MOVING AND STARTED TO TURN BLUE, WAS ABLE TO AROUSE. NOTIFIED CLAUDE UPON RETURN.
--- NOTE | 2019-07-19 14:59 | NUR ---
RADIAL ROUTER OPERATOR NOTIFIED THIS RN OF THE SITUATION THAT OCCURED OVER IN CT. MADE AWARE.
[2019-07-19] MEDS ORDERED: HYDROmorphone 1 MG/ML, 1ML VIAL ONE (15:03)
--- NOTE | 2019-07-19 15:10 | NUR ---
PT DECLINING BP AT THIS TIME STATES IT CAUSES MORE CONTRACTIONS OF HER ARM. PT MEDICATED PER ORDER AND O2 MONITORING IN PLACE.
[2019-07-19 16:01] VITALS: BP 127/100
--- NOTE | 2019-07-19 16:03 | NUR ---
THEA RN: PT TALKING ON HER CELL PHONE. VS STABLE. NO ACUTE DISTRESS NOTED. CALL LIGHT IN PLACE. WILL CONTINUE TO MONITOR WHILE PRIMARY RN IS ON BREAK.
[2019-07-19 16:15] LABS: MICROSCOPIC NOT IND
[2019-07-19 16:17] LABS: CULTURE INDICATED? NO
--- NOTE | 2019-07-19 16:37 | NUR ---
REPORT GIVEN TO KIM ARCE
--- NOTE | 2019-07-19 17:55 | NUR ---
AWAITING FRIEND TO ARRIVE FOR DC AT THIS TIME. PT IN BED AND DRESSED.
== END 2019-07-19 18:36 | disposition home or self-care (01) ==
LOC: ED 13:21
DX: G25.3 Myoclonus (principal); I10 Essential (primary) hypertension; W01.0XXA Fall on same level from slipping, tripping and stumbling without subsequent striking against object, initial encounter; Y93.89 Activity, other specified; Y92.009 Unspecified place in unspecified non-institutional (private) residence as the place of occurrence of the external cause; Y99.8 Other external cause status
CPT/HCPCS: 36415; 70450; 80053; 81003; 82550; 85025; 99284

== ENCOUNTER 2019-08-09 16:07 | Emergency (ER) | payer MEDICARE ==
[~2019-08-09] VITALS: Ht 162.6 cm; Wt 54.5 kg
[~2019-08-09 16:07] MED LIST changes: +ACID1TAB7 PO; +PREG50CA PO
--- NOTE | 2019-08-09 16:21 | NUR ---
39 YR OLD FEMALE ARRIVED VIA EMS. PER REPORT PT HAS A CONDITION THAT ANTIBODIES ATTACK POTASSIUM CHANNELS. NEUROMYOTONIA ISIAHCS. PT WAS SEEN BE EMS IN THE AM. CONCERNS WITH DIASTOLIC BP WAS INCREASED. PT HAD TAKEN ATIVAN. DECLINED TO BE TRANSPORTED. EMS WAS THEN CALLED THIS AFTERNOON, PT WAS FOUND OUTSIDE WALKING AROUND, CONFUSED. (EMS REPORTS SHE CAN WALK BUT DOES HAVE A MOTORIZED W/C TO ASSIST HER). PT DID NOT REMEMBER WHY SHE WAS OUTSIDE OR HOW SHE GOT OUTSIDE. PT ARRIVES WITH EPISODES OF HAVING TENANY EMS REPORTS "NORMAL FOR HER. SHE IS DUE FOR IMMUNOTHERAPY 08/14 AND TENDS TO WORSEN THE CLOSER TO TIME FOR TX. PT WITH EPISODES OF UNRESPONSIVENESS. ALSO REPORTED TO HAVE BEEN GOING ON IN THE AMBULANCE. PT WITH IV IN RAC. PLACED ON MONITORS, AUTO BP AND PULSE OX. PT WITH STATEMENTS AT TIMES "WHERE AM I?" "I CAME BY AMBULANCE?" PT RECEIVED 50MG BENADRYL AND ZOFRAN HAZ TECH.
--- NOTE | 2019-08-09 16:27 | NUR ---
PT STATES CAN HAVE DIAZEPAM OR DRUGS IN THAT CLASS, JUST NEEDS TO RECEIVE BENADRYL R/T MEDICATION CAUSES A RASH.
--- NOTE | 2019-08-09 16:35 | NUR ---
REPORT FROM FRANCE ALVAREZ
--- NOTE | 2019-08-09 16:35 | NUR ---
DR MIRAMONTES AT BEDSIDE TO ROSHNI PT. REPORT TO MIRNA ALVAREZ.
[2019-08-09] MEDS ORDERED: SODIUM CHLORIDE 0.9% 1,000ML IVBOLUS ONE (17:00)
[2019-08-09 17:15] LABS: ALANINE AMINOTRANSFERASE 41 U/L (12-78); ALBUMIN 3.9 g/dL (3.4-5.0); ANION GAP 6 mmol/L (5-15); CALCIUM 9.2 mg/dL (8.5-10.1); CHLORIDE 104 mmol/L (98-107); CREATININE 0.96 mg/dL (0.55-1.02)
[2019-08-09 17:16] LABS: BASOPHILS # (AUTO) 0.02 x10^3/uL (0-0.1); BASOPHILS % (AUTO) 0 % (0-1); EOSINOPHILS # (AUTO) 0.19 x10^3/uL (0-0.4); EOSINOPHILS % (AUTO) 3 % (1-7); LYMPHOCYTES # (AUTO) 1.57 x10^3/uL (1-3.4); LYMPHOCYTES % (AUTO) 23 % (22-44); MD NO; MEAN CORPUSCULAR HEMOGLOBIN 30.8 pg (27.0-34.8); MEAN CORPUSCULAR HGB CONC 33.9 g/dL (32.4-35.8); MEAN CORPUSCULAR VOLUME 90.8 fL (80-100); MONOCYTES # (AUTO) 0.58 x10^3/uL (0.2-0.8); MONOCYTES % (AUTO) 8 % (2-9); NEUTROPHILS # (AUTO) 4.53 x10^3/uL (1.8-6.8); NEUTROPHILS % (AUTO) 66 % (42-75); PLATELET COUNT 312 x10^3/uL (130-400); RED BLOOD COUNT 4.48 x10^6/uL (3.82-5.3); RED CELL DISTRIBUTION WIDTH 12.3 % (9.6-15.2)
--- NOTE | 2019-08-09 17:16 | NUR ---
IVF STARTED. UP TO BEDSIDE COMMODE TO VOID (REFUSING CATH). WILL ASSURE IT IS CLEAN CATH Addendum: 08/09/19 at 1716 by RFRUHLING *CLEAN CATCH
[2019-08-09 17:17] LABS: ALKALINE PHOSPHATASE 74 U/L (45-117); BILIRUBIN,TOTAL 0.3 mg/dL (0.2-1.0); TOTAL PROTEIN 8.9 g/dL (6.4-8.2)
[2019-08-09] MEDS ORDERED: LORazepam 2 MG/ML, 1ML ONE (17:36)
--- NOTE | 2019-08-09 17:38 | NUR ---
BROTHER SHABBIR GODWIN [phone]
--- NOTE | 2019-08-09 17:45 | NUR ---
up to commode to void-ua obtained-sent to lab while getting back to bed-had seizure/dystonia like event: Cook Chief very suspicious of event; as patient directing press writer as how she would like to be positioned in clear sentence while the rest of her body was full contracted. Protecting airway Provider to bedside- decided to medicate with 1mg IV Ativan Seizure precautions placed Provider to admit
[2019-08-09 17:53] LABS: HCG UR SG 1.008 (1.003-1.030); MICROSCOPIC NOT IND
[2019-08-09 17:57] LABS: CULTURE INDICATED? NO
[2019-08-09] MEDS ORDERED: LORazepam 2 MG/ML, 1ML IVPush ONE (18:00)
--- NOTE | 2019-08-09 18:09 | NUR ---
Patient now resting deeply. Rouses to voice. vss on traffic monitor specialist Attempted to complete med recc-patient unsure of meds w/ exception " I know I have an internal baclofen pump." Will continue to closely monitor
[2019-08-09] MEDS ORDERED: baclofen pump (18:11)
[2019-08-09 18:56] VITALS: BP 130/92
--- NOTE | 2019-08-09 18:56 | NUR ---
Report to yao ALVAREZ
--- NOTE | 2019-08-09 18:58 | NUR ---
PT RESTING ON GURNEY EYES CLOSED, RESP EVEN AND UNLABORED. PT AROUSABLE TO VOICE, VSS, CALL LIGHT IN REACH NADN
--- NOTE | 2019-08-09 19:08 | NUR ---
PT STS SHE SPOKE TO MOM, MOM ON THE WAY FROM [facility].
== END 2019-08-09 20:55 | disposition home or self-care (01) ==
LOC: ED 16:30
DX: R41.0 Disorientation, unspecified (principal); I10 Essential (primary) hypertension
CPT/HCPCS: 36415; 80053; 81003; 81025; 82140; 83605; 85025; 96361; 96374; 99283; J2060; J7030

== ENCOUNTER 2019-09-11 11:52 | Inpatient (IN) | payer MEDICARE ==
[~2019-09-11] VITALS: Ht 162.6 cm; Wt 63.4 kg
[~2019-09-11 11:52] MED LIST changes: +ONDA-89 PO; -ONDA4TAB12 PO; +baclofen pump
--- NOTE | 2019-09-11 12:25 | NUR ---
pt transported by ems from [facility] for muscle spasms. pt has hx of autoimmune disorder and had infusions scheduled for tomorrow. ems gave 2 mg of versed and 25 of benadryl iv to pt after pt began convulsing. pt in room at this time. nibp and o2 monitoring in place. pt resting comfortably in bed. no convulsions present at this time. call light in reach.
--- NOTE | 2019-09-11 13:01 | NUR ---
REPORT RECEIVED FROM KIM ARCE. PT RESTING ON [facility]. LAB AT BEDSIDE. NADN. RICK.
[2019-09-11 13:19] LABS: BASOPHILS # (AUTO) 0.02 x10^3/uL (0-0.1); BASOPHILS % (AUTO) 0 % (0-1); EOSINOPHILS % (AUTO) 0 % (1-7); LYMPHOCYTES # (AUTO) 0.74 x10^3/uL (1-3.4); LYMPHOCYTES % (AUTO) 10 % (22-44); MD NO; MEAN CORPUSCULAR HEMOGLOBIN 30.3 pg (27.0-34.8); MEAN CORPUSCULAR HGB CONC 33.7 g/dL (32.4-35.8); MEAN PLATELET VOLUME 8.2 fL (7.4-10.4); MONOCYTES # (AUTO) 0.34 x10^3/uL (0.2-0.8); MONOCYTES % (AUTO) 5 % (2-9); NEUTROPHILS # (AUTO) 6.41 x10^3/uL (1.8-6.8); NEUTROPHILS % (AUTO) 85 % (42-75); PLATELET COUNT 208 x10^3/uL (130-400); RED BLOOD COUNT 4.37 x10^6/uL (3.82-5.3); RED CELL DISTRIBUTION WIDTH 13.9 % (9.6-15.2)
[2019-09-11 13:28] LABS: ALANINE AMINOTRANSFERASE 25 U/L (12-78); ALBUMIN 3.7 g/dL (3.4-5.0); ANION GAP 7 mmol/L (5-15); CALCIUM 8.3 mg/dL (8.5-10.1); CHLORIDE 105 mmol/L (98-107); CREATININE 0.91 mg/dL (0.55-1.02)
[2019-09-11 13:32] LABS: ALKALINE PHOSPHATASE 60 U/L (45-117); BILIRUBIN,TOTAL 0.3 mg/dL (0.2-1.0)
[2019-09-11 13:45] LABS: ACETONE, SERUM Negative (Negative)
[2019-09-11] MEDS ORDERED: SODIUM CHLORIDE FLUSH 10ML SYR IVF ONE (14:00)
--- NOTE | 2019-09-11 14:04 | NUR ---
PT HELPED TO [facility]. STEADY WITH NO ASSISTANCE TO TRANSFER.
--- NOTE | 2019-09-11 14:11 | NUR ---
PT NOW RESTING ON GURNEY. NADN. TERANS. UP FOR RECHECK.
--- NOTE | 2019-09-11 15:14 | NUR ---
MED REC COMPLETED. PT AWARE OF POC RE: ADMISSION. KIRBY. PRABHJOT. DENIES NEEDS.
[2019-09-11] MEDS ORDERED: MORPHINE SULFATE 4 MG/ML, 1ML ONE (16:26)
--- NOTE | 2019-09-11 16:28 | NUR ---
PT REQUESTING PAIN MEDICATION BEFORE PICC PLACEMENT. PT MEDICATED AT THIS TIME. PT GOING TO IR NOW.
[2019-09-11] MEDS ORDERED: MORPHINE SULFATE 4 MG/ML, 1ML IVPush ONE (16:30)
--- NOTE | 2019-09-11 17:27 | NUR ---
RN IN IR CALLED THIS RN- CONSCIOUS SEDATION USED IN IR AT THIS TIME. IR RN CALLING PT'S MOTHER FOR CONSENT.
[2019-09-11] MEDS ORDERED: FENTANYL PF 100 MCG/2ML ONE (17:35)
[2019-09-11] MEDS ORDERED: DIPHENHYDRAMINE 50 MG/ML, 1ML ONE (17:35)
[2019-09-11] MEDS ORDERED: FLUMAZENIL 0.1 MG/1 ML, 5ML ONE (17:35)
[2019-09-11] MEDS ORDERED: MIDAZOLAM 1 MG/ML, 5ML ONE (17:35)
[2019-09-11] MEDS ORDERED: NALOXONE 1 MG/ML, 2ML ONE (17:35)
--- NOTE | 2019-09-11 17:38 | NUR ---
REPORT GIVEN TO KIM ABBASI.
[2019-09-11] MEDS ORDERED: KETOROLAC 30 MG/1 ML IV PRN (18:00)
[2019-09-11] MEDS ORDERED: LACTATED RINGERS 1,000 ML IV SCH (18:00)
[2019-09-11] MEDS ORDERED: POLYETHYLENE GLYCOL 17 GM PACKET PO PRN (18:00)
[2019-09-11] MEDS ORDERED: BUTALB/APAP/CAFFEINE 50MG/325MG/40MG PO PRN (18:00)
[2019-09-11] MEDS ORDERED: ACETAMINOPHEN 325 MG TABLET PO PRN (18:00)
[2019-09-11] MEDS ORDERED: TRAZODONE 50MG TABLET PO PRN (18:00)
[2019-09-11] MEDS ORDERED: hydrALAzine 20 MG/ML, 1ML IVPush PRN (18:00)
[2019-09-11] MEDS ORDERED: GUAIFENESIN/DM 200-20MG, 10ML UDC PO PRN (18:00)
--- NOTE | 2019-09-11 18:23 | NUR ---
THIS RN SPOKE WITH [facility] WHO STATES HE WANTS PT ADMITTED TO MED/SURG. THIS RN MADE [facility] AWARE OF PT BEING TACHY. [facility] STATES HE KNOWS AND WANTS PT ON MED/SURG.
--- NOTE | 2019-09-11 18:38 | NUR ---
PT COMING BACK FROM IR AT THIS TIME. WAS GIVEN 3 VERSED, 25 BENADRYL, 62.5 FENTANYL. HAS TRIPLE LUMEN RIGHT IJ IN PLACE AT THIS TIME.
[2019-09-11 18:47] LABS: FREE T4 (FREE THYROXINE) 0.88 ng/dL (0.76-1.46)
--- NOTE | 2019-09-11 18:48 | NUR ---
PT BACK FROM IR. RESTING ON [employer]. NADN. TERANS.
--- NOTE | 2019-09-11 19:12 | NUR ---
REPORT GIVEN TO KIM ARCE.
[2019-09-11 21:00] VITALS: BP 123/85
[2019-09-12] VITALS (7 sets, daily range): BP systolic 139–149; BP diastolic 89–103
[2019-09-12] MEDS: OXYcodone IR 5MG TABLET PO PRN (00:56)
[2019-09-12] MEDS: LACTATED RINGERS 1,000 ML IV SCH ×5 (00:57→22:58)
[2019-09-12] MEDS ORDERED: AMITRIPTYLINE 25 MG TABLET PO ONE (02:00)
[2019-09-12] MEDS ORDERED: MORPHINE SULFATE 4 MG/ML, 1ML IVPush ONE (02:00)
[2019-09-12] MEDS: LORazepam 2 MG/ML, 1ML IVPush PRN ×4 (02:08→21:24)
[2019-09-12] MEDS: ONDANSETRON 2MG/ML, 2ML IVPush PRN ×2 (04:15→17:13)
[2019-09-12 05:33] LABS: BASOPHILS # (AUTO) 0.01 x10^3/uL (0-0.1); BASOPHILS % (AUTO) 0 % (0-1); EOSINOPHILS # (AUTO) 0.11 x10^3/uL (0-0.4); EOSINOPHILS % (AUTO) 1 % (1-7); LYMPHOCYTES # (AUTO) 1.11 x10^3/uL (1-3.4); LYMPHOCYTES % (AUTO) 15 % (22-44); MD NO; MEAN CORPUSCULAR HEMOGLOBIN 30.2 pg (27.0-34.8); MEAN CORPUSCULAR HGB CONC 33.2 g/dL (32.4-35.8); MEAN CORPUSCULAR VOLUME 90.8 fL (80-100); MEAN PLATELET VOLUME 7.6 fL (7.4-10.4); MONOCYTES # (AUTO) 0.57 x10^3/uL (0.2-0.8); MONOCYTES % (AUTO) 8 % (2-9); NEUTROPHILS # (AUTO) 5.51 x10^3/uL (1.8-6.8); NEUTROPHILS % (AUTO) 76 % (42-75); PLATELET COUNT 193 x10^3/uL (130-400); RED BLOOD COUNT 4.05 x10^6/uL (3.82-5.3); RED CELL DISTRIBUTION WIDTH 13.3 % (9.6-15.2)
[2019-09-12] MEDS: THYROID 30 MG TABLET PO SCH (05:33)
[2019-09-12] MEDS: METHOCARBAMOL 500 MG TABLET PO PRN (05:33)
[2019-09-12 05:37] LABS: ALBUMIN 3.3 g/dL (3.4-5.0); CALCIUM 8.5 mg/dL (8.5-10.1); CHLORIDE 108 mmol/L (98-107)
[2019-09-12 05:49] LABS: ANION GAP 4 mmol/L (5-15); CREATININE 0.88 mg/dL (0.55-1.02)
[2019-09-12] MEDS: LORazepam 1MG TABLET PO SCH ×4 (09:30→21:39)
[2019-09-12] MEDS ORDERED: ALBUMIN HUMAN 5% 2,000 ML IV SCH (10:00)
[2019-09-12] MEDS ORDERED: CALCIUM GLUCONATE 4.6 MEQ/10 ML IV ONE (10:00)
[2019-09-12] MEDS: DIPHENHYDRAMINE 25 MG CAPSULE PO SCH ×2 (12:54→21:39)
[2019-09-12] MEDS: OMEPRAZOLE 20 MG CAPSULE.DR PO SCH (12:54)
[2019-09-12] MEDS: POTASSIUM CHLORIDE 10 MEQ TABLET.ER PO SCH (12:54)
[2019-09-12] MEDS: ONDANSETRON 4 MG TABLET PO SCH (12:54)
[2019-09-12] MEDS: METOPROLOL TARTRATE 100 MG TABLET PO SCH (12:55)
[2019-09-12] MEDS: HYDROmorphone 1 MG/ML, 1ML INJ IV PRN ×3 (13:14→21:38)
[2019-09-12] MEDS: ALBUTEROL SULFATE 2.5 MG/3 ML NEB PRN (17:35)
[2019-09-12] MEDS ORDERED: LACTATED RINGERS 1,000 ML IV SCH (18:00)
[2019-09-12] MEDS: FAMOTIDINE 40 MG TABLET PO SCH (21:39)
[2019-09-13] MEDS: ONDANSETRON 2MG/ML, 2ML IVPush PRN ×3 (01:08→17:26)
[2019-09-13] MEDS: HYDROmorphone 1 MG/ML, 1ML INJ IV PRN ×6 (01:08→21:09)
[2019-09-13] MEDS: DIPHENHYDRAMINE 25 MG CAPSULE PO SCH ×4 (01:08→21:04)
[2019-09-13 01:15] VITALS: BP 131/86
[2019-09-13] MEDS: LACTATED RINGERS 1,000 ML IV SCH ×3 (03:29→12:22)
[2019-09-13 05:19] LABS: ALBUMIN 3.5 g/dL (3.4-5.0); ANION GAP 3 mmol/L (5-15); CALCIUM 8.3 mg/dL (8.5-10.1); CHLORIDE 109 mmol/L (98-107)
[2019-09-13 05:21] LABS: CREATININE 0.73 mg/dL (0.55-1.02)
[2019-09-13] MEDS: THYROID 30 MG TABLET PO SCH (06:36)
[2019-09-13] MEDS: LORazepam 1MG TABLET PO SCH ×3 (08:00→21:04)
[2019-09-13] MEDS: ONDANSETRON 4 MG TABLET PO SCH (08:05)
[2019-09-13] MEDS: POTASSIUM CHLORIDE 10 MEQ TABLET.ER PO SCH (08:05)
[2019-09-13] MEDS: METOPROLOL TARTRATE 100 MG TABLET PO SCH (08:05)
[2019-09-13] MEDS: OXYcodone IR 5MG TABLET PO PRN (08:05)
[2019-09-13] MEDS: OMEPRAZOLE 20 MG CAPSULE.DR PO SCH (08:05)
[2019-09-13] MEDS: CALCIUM GLUCONATE 4.6 MEQ in SODIUM CHLORIDE 0.9% 50 ML IV ONE ×3 (08:30→09:47)
[2019-09-13 08:40] VITALS: BP 131/85
[2019-09-13] MEDS: CALCIUM GLUCONATE 4.6 MEQ/10 ML IV SCH ×2 (09:00→12:30)
[2019-09-13] MEDS ORDERED: ALBUMIN HUMAN 5% 2,000 ML IV SCH (09:00)
[2019-09-13] MEDS ORDERED: LACTATED RINGERS 1,000 ML IV SCH (12:00)
[2019-09-13 12:17] VITALS: BP 133/87
[2019-09-13] MEDS: LORazepam 2 MG/ML, 1ML IVPush PRN (12:22)
[2019-09-13] MEDS: ALBUTEROL SULFATE 2.5 MG/3 ML NEB PRN (17:26)
[2019-09-13 20:00] VITALS: BP 125/83
[2019-09-13] MEDS: FAMOTIDINE 40 MG TABLET PO SCH (21:04)
[2019-09-14] MEDS: DIPHENHYDRAMINE 25 MG CAPSULE PO SCH ×4 (01:12→21:11)
[2019-09-14] MEDS: LORazepam 2 MG/ML, 1ML IVPush PRN ×4 (01:12→21:12)
[2019-09-14] MEDS: HYDROmorphone 1 MG/ML, 1ML INJ IV PRN ×5 (01:24→21:12)
[2019-09-14] MEDS: ONDANSETRON 2MG/ML, 2ML IVPush PRN ×3 (01:24→21:12)
[2019-09-14 01:58] VITALS: BP 117/83
[2019-09-14] MEDS: THYROID 30 MG TABLET PO SCH (05:51)
[2019-09-14 05:53] LABS: ALBUMIN 3.9 g/dL (3.4-5.0); ANION GAP 6 mmol/L (5-15); CALCIUM 8.7 mg/dL (8.5-10.1); CHLORIDE 105 mmol/L (98-107)
[2019-09-14 05:54] LABS: CREATININE 0.85 mg/dL (0.55-1.02)
[2019-09-14 05:55] LABS: BASOPHILS # (AUTO) 0.01 x10^3/uL (0-0.1); BASOPHILS % (AUTO) 0 % (0-1); EOSINOPHILS # (AUTO) 0.16 x10^3/uL (0-0.4); EOSINOPHILS % (AUTO) 3 % (1-7); LYMPHOCYTES # (AUTO) 1.09 x10^3/uL (1-3.4); LYMPHOCYTES % (AUTO) 19 % (22-44); MD NO; MEAN CORPUSCULAR HGB CONC 33.2 g/dL (32.4-35.8); MEAN CORPUSCULAR VOLUME 90.1 fL (80-100); MEAN PLATELET VOLUME 8.2 fL (7.4-10.4); MONOCYTES # (AUTO) 0.41 x10^3/uL (0.2-0.8); MONOCYTES % (AUTO) 7 % (2-9); NEUTROPHILS # (AUTO) 4.07 x10^3/uL (1.8-6.8); NEUTROPHILS % (AUTO) 71 % (42-75); PLATELET COUNT 178 x10^3/uL (130-400); RED BLOOD COUNT 4.17 x10^6/uL (3.82-5.3); RED CELL DISTRIBUTION WIDTH 13.3 % (9.6-15.2)
[2019-09-14 07:16] VITALS: BP 150/82
[2019-09-14 07:20] VITALS: BP 126/88
[2019-09-14] MEDS: ONDANSETRON 4 MG TABLET PO SCH (09:00)
[2019-09-14] MEDS: LORazepam 1MG TABLET PO SCH ×3 (09:00→21:00)
[2019-09-14] MEDS: POTASSIUM CHLORIDE 10 MEQ TABLET.ER PO SCH (10:11)
[2019-09-14] MEDS: OMEPRAZOLE 20 MG CAPSULE.DR PO SCH (10:11)
[2019-09-14] MEDS: METOPROLOL TARTRATE 100 MG TABLET PO SCH (10:11)
[2019-09-14] MEDS: ONDANSETRON ODT 4 MG PO PRN (10:19)
[2019-09-14] MEDS ORDERED: ALBUMIN HUMAN 5% IV ONE (12:00)
[2019-09-14] MEDS: CALCIUM GLUCONATE 4.6 MEQ/10 ML IV SCH (12:30)
[2019-09-14 15:34] VITALS: BP 134/87
[2019-09-14 18:28] VITALS: BP 127/90
[2019-09-14] MEDS ORDERED: AMITRIPTYLINE 50 MG TABLET ONE (21:04)
[2019-09-14] MEDS: FAMOTIDINE 40 MG TABLET PO SCH (21:11)
[2019-09-14] MEDS: AMITRIPTYLINE 25 MG TABLET PO PRN (21:12)
[2019-09-15 00:15] VITALS: BP 131/89
[2019-09-15] MEDS: DIPHENHYDRAMINE 25 MG CAPSULE PO SCH ×4 (02:01→20:00)
[2019-09-15] MEDS: LORazepam 2 MG/ML, 1ML IVPush PRN ×4 (02:51→21:21)
[2019-09-15] MEDS: ONDANSETRON 2MG/ML, 2ML IVPush PRN ×2 (02:52→21:21)
[2019-09-15] MEDS: HYDROmorphone 1 MG/ML, 1ML INJ IV PRN ×4 (02:52→21:21)
[2019-09-15] MEDS: THYROID 30 MG TABLET PO SCH (06:13)
[2019-09-15 07:01] VITALS: BP 140/96
[2019-09-15] MEDS: POTASSIUM CHLORIDE 10 MEQ TABLET.ER PO SCH (09:29)
[2019-09-15] MEDS: OMEPRAZOLE 20 MG CAPSULE.DR PO SCH (09:29)
[2019-09-15] MEDS: LORazepam 1MG TABLET PO SCH ×3 (09:30→21:00)
[2019-09-15] MEDS: ONDANSETRON 4 MG TABLET PO SCH (09:30)
[2019-09-15] MEDS: METOPROLOL TARTRATE 100 MG TABLET PO SCH (09:31)
[2019-09-15 12:54] VITALS: BP 121/85
[2019-09-15 19:25] VITALS: BP 129/96
[2019-09-15] MEDS: AMITRIPTYLINE 25 MG TABLET PO PRN (21:21)
[2019-09-15] MEDS: FAMOTIDINE 40 MG TABLET PO SCH (21:21)
[2019-09-16] MEDS ORDERED: BENZONATATE 100 MG CAPSULE ONE (00:16)
[2019-09-16] MEDS: METHOCARBAMOL 500 MG TABLET PO PRN ×2 (00:17→16:17)
[2019-09-16] MEDS ORDERED: BENZONATATE 100 MG CAPSULE PO PRN (00:30)
[2019-09-16] MEDS: DIPHENHYDRAMINE 25 MG CAPSULE PO SCH ×4 (01:26→21:28)
[2019-09-16] MEDS: ONDANSETRON ODT 4 MG PO PRN (01:27)
[2019-09-16] MEDS: LORazepam 2 MG/ML, 1ML IVPush PRN ×5 (01:27→21:28)
[2019-09-16] MEDS: HYDROmorphone 1 MG/ML, 1ML INJ IV PRN ×4 (01:27→21:28)
[2019-09-16 01:51] VITALS: BP 111/77
[2019-09-16] MEDS: THYROID 30 MG TABLET PO SCH (05:48)
[2019-09-16 06:28] LABS: ALBUMIN 4.3 g/dL (3.4-5.0); ANION GAP 7 mmol/L (5-15); CALCIUM 8.4 mg/dL (8.5-10.1); CHLORIDE 105 mmol/L (98-107)
[2019-09-16] MEDS: ALBUTEROL SULFATE 2.5 MG/3 ML NEB PRN (06:42)
[2019-09-16] MEDS: LORazepam 1MG TABLET PO SCH ×3 (08:54→20:01)
[2019-09-16 09:00] VITALS: BP 129/95
[2019-09-16] MEDS ORDERED: CALCIUM GLUCONATE 4.6 MEQ/10 ML IV SCH ×2 (09:00)
[2019-09-16] MEDS: METOPROLOL TARTRATE 100 MG TABLET PO SCH (09:09)
[2019-09-16] MEDS: POTASSIUM CHLORIDE 10 MEQ TABLET.ER PO SCH (09:09)
[2019-09-16] MEDS: OMEPRAZOLE 20 MG CAPSULE.DR PO SCH (09:10)
[2019-09-16] MEDS: ONDANSETRON 4 MG TABLET PO SCH (09:10)
[2019-09-16] MEDS: MAGNESIUM HYDROXIDE 8%, 30ML UDC PO SCH ×2 (09:30→21:28)
[2019-09-16 14:50] VITALS: BP 117/78
[2019-09-16] MEDS: ALBUMIN HUMAN 5%, 25G/500ML IV SCH (16:22)
[2019-09-16] MEDS: CALCIUM GLUCONATE 4.6 MEQ/10 ML IV SCH (16:22)
[2019-09-16] MEDS: OXYcodone IR 5MG TABLET PO PRN (17:11)
[2019-09-16 19:45] VITALS: BP 105/73
[2019-09-16] MEDS: AMITRIPTYLINE 25 MG TABLET PO PRN (21:28)
[2019-09-16] MEDS: FAMOTIDINE 40 MG TABLET PO SCH (21:28)
[2019-09-16] MEDS: ONDANSETRON 2MG/ML, 2ML IVPush PRN (21:34)
[2019-09-17 00:46] VITALS: BP 113/79
[2019-09-17] MEDS: ONDANSETRON ODT 4 MG PO PRN (02:17)
[2019-09-17] MEDS: DIPHENHYDRAMINE 25 MG CAPSULE PO SCH ×4 (02:17→20:00)
[2019-09-17] MEDS: HYDROmorphone 1 MG/ML, 1ML INJ IV PRN ×4 (02:17→18:19)
[2019-09-17] MEDS: LORazepam 2 MG/ML, 1ML IVPush PRN ×4 (02:17→18:19)
[2019-09-17 02:23] VITALS: BP 122/83
[2019-09-17] MEDS: THYROID 30 MG TABLET PO SCH (05:11)
[2019-09-17 07:07] VITALS: BP 126/85
[2019-09-17] MEDS: CALCIUM GLUCONATE 4.6 MEQ/10 ML IV SCH (09:00)
[2019-09-17] MEDS: ALBUMIN HUMAN 5%, 25G/500ML IV SCH (09:00)
[2019-09-17] MEDS: LORazepam 1MG TABLET PO SCH ×3 (09:00→19:57)
[2019-09-17] MEDS: OMEPRAZOLE 20 MG CAPSULE.DR PO SCH (09:16)
[2019-09-17] MEDS: ONDANSETRON 4 MG TABLET PO SCH (09:17)
[2019-09-17] MEDS: METOPROLOL TARTRATE 100 MG TABLET PO SCH (09:17)
[2019-09-17] MEDS: POTASSIUM CHLORIDE 10 MEQ TABLET.ER PO SCH (09:18)
[2019-09-17] MEDS: MAGNESIUM HYDROXIDE 8%, 30ML UDC PO SCH ×2 (09:19→22:03)
[2019-09-17] MEDS: METHOCARBAMOL 500 MG TABLET PO PRN ×2 (11:37→19:55)
[2019-09-17 12:57] VITALS: BP 113/79
[2019-09-17 19:35] VITALS: BP 106/72
[2019-09-17] MEDS: ONDANSETRON 2MG/ML, 2ML IVPush PRN (19:52)
[2019-09-17] MEDS: FAMOTIDINE 40 MG TABLET PO SCH (22:03)
[2019-09-18 01:28] VITALS: BP 112/76
[2019-09-18] MEDS: DIPHENHYDRAMINE 25 MG CAPSULE PO SCH ×4 (01:38→20:46)
[2019-09-18] MEDS: HYDROmorphone 1 MG/ML, 1ML INJ IV PRN ×4 (01:38→20:55)
[2019-09-18] MEDS: LORazepam 2 MG/ML, 1ML IVPush PRN ×5 (01:38→20:56)
[2019-09-18] MEDS: ONDANSETRON ODT 4 MG PO PRN ×2 (01:42→08:35)
[2019-09-18] MEDS: METHOCARBAMOL 500 MG TABLET PO PRN ×2 (04:44→12:58)
[2019-09-18] MEDS: THYROID 30 MG TABLET PO SCH (04:44)
[2019-09-18] MEDS: ONDANSETRON 2MG/ML, 2ML IVPush PRN ×3 (05:07→20:55)
[2019-09-18 05:32] LABS: ALBUMIN 3.6 g/dL (3.4-5.0); ANION GAP 5 mmol/L (5-15); CALCIUM 7.7 mg/dL (8.5-10.1); CHLORIDE 108 mmol/L (98-107); CREATININE 0.89 mg/dL (0.55-1.02)
[2019-09-18 07:38] VITALS: BP 125/82
[2019-09-18] MEDS: LORazepam 1MG TABLET PO SCH ×3 (08:21→20:46)
[2019-09-18] MEDS: MAGNESIUM HYDROXIDE 8%, 30ML UDC PO SCH ×2 (08:23→20:40)
[2019-09-18] MEDS: POTASSIUM CHLORIDE 10 MEQ TABLET.ER PO SCH (08:23)
[2019-09-18] MEDS: METOPROLOL TARTRATE 100 MG TABLET PO SCH (08:23)
[2019-09-18] MEDS: OMEPRAZOLE 20 MG CAPSULE.DR PO SCH (08:23)
[2019-09-18] MEDS ORDERED: DIPHENHYDRAMINE 50 MG CAPSULE ONE (08:27)
[2019-09-18] MEDS: ONDANSETRON 4 MG TABLET PO SCH (08:34)
[2019-09-18] MEDS: CALCIUM GLUCONATE 4.6 MEQ/10 ML IV SCH (09:00)
[2019-09-18] MEDS: ALBUMIN HUMAN 5%, 25G/500ML IV SCH (09:00)
[2019-09-18] MEDS ORDERED: CALCIUM GLUCONATE 4.6 MEQ/10 ML IV ONE (13:00)
[2019-09-18] MEDS ORDERED: ALBUMIN HUMAN 5%, 25G/500ML IV ONE (13:00)
[2019-09-18 14:00] VITALS: BP 104/70
[2019-09-18] MEDS ORDERED: POTASSIUM PHOSPHATE 44 MEQ in SODIUM CHLORIDE 0.9% 500 ML IV ONE (17:30)
[2019-09-18 20:02] VITALS: BP 125/65
[2019-09-18] MEDS: FAMOTIDINE 40 MG TABLET PO SCH (20:46)
[2019-09-18] MEDS: AMITRIPTYLINE 25 MG TABLET PO PRN (21:02)
[2019-09-19] VITALS (12 sets, daily range): BP systolic 101–139; BP diastolic 67–88
[2019-09-19] MEDS: METHOCARBAMOL 500 MG TABLET PO PRN ×2 (01:54→14:55)
[2019-09-19] MEDS: LORazepam 2 MG/ML, 1ML IVPush PRN ×3 (01:54→19:53)
[2019-09-19] MEDS: DIPHENHYDRAMINE 25 MG CAPSULE PO SCH ×2 (01:55→09:09)
[2019-09-19] MEDS: THYROID 30 MG TABLET PO SCH (05:31)
[2019-09-19] MEDS: HYDROmorphone 1 MG/ML, 1ML INJ IV PRN (05:35)
[2019-09-19 06:03] LABS: BASOPHILS # (AUTO) 0.02 x10^3/uL (0-0.1); BASOPHILS % (AUTO) 1 % (0-1); EOSINOPHILS # (AUTO) 0.13 x10^3/uL (0-0.4); EOSINOPHILS % (AUTO) 3 % (1-7); LYMPHOCYTES # (AUTO) 0.74 x10^3/uL (1-3.4); LYMPHOCYTES % (AUTO) 18 % (22-44); MD NO; MEAN CORPUSCULAR HEMOGLOBIN 30.5 pg (27.0-34.8); MEAN CORPUSCULAR HGB CONC 33.6 g/dL (32.4-35.8); MEAN CORPUSCULAR VOLUME 90.8 fL (80-100); MONOCYTES # (AUTO) 0.43 x10^3/uL (0.2-0.8); MONOCYTES % (AUTO) 10 % (2-9); NEUTROPHILS # (AUTO) 2.78 x10^3/uL (1.8-6.8); NEUTROPHILS % (AUTO) 68 % (42-75); PLATELET COUNT 106 x10^3/uL (130-400); RED BLOOD COUNT 3.48 x10^6/uL (3.82-5.3); RED CELL DISTRIBUTION WIDTH 13.6 % (9.6-15.2)
[2019-09-19 06:05] LABS: ANION GAP 4 mmol/L (5-15); CHLORIDE 112 mmol/L (98-107); CREATININE 0.63 mg/dL (0.55-1.02)
[2019-09-19] MEDS ORDERED: CALCIUM GLUCONATE 4.6 MEQ in SODIUM CHLORIDE 0.9% 50 ML IV ONE (09:00)
[2019-09-19] MEDS: OMEPRAZOLE 20 MG CAPSULE.DR PO SCH (09:07)
[2019-09-19] MEDS: POTASSIUM CHLORIDE 10 MEQ TABLET.ER PO SCH (09:07)
[2019-09-19] MEDS: MAGNESIUM HYDROXIDE 8%, 30ML UDC PO SCH ×2 (09:08→19:54)
[2019-09-19] MEDS: METOPROLOL TARTRATE 100 MG TABLET PO SCH (09:08)
[2019-09-19] MEDS: LORazepam 1MG TABLET PO SCH (09:09)
[2019-09-19] MEDS: ONDANSETRON 4 MG TABLET PO SCH (09:09)
[2019-09-19] MEDS: ONDANSETRON 2MG/ML, 2ML IVPush PRN ×2 (09:24→21:15)
[2019-09-19] MEDS ORDERED: DIPHENHYDRAMINE 25 MG CAPSULE PO PRN (15:00)
[2019-09-19] MEDS: FAMOTIDINE 40 MG TABLET PO SCH (19:53)
--- NOTE | 2019-09-19 21:35 | NUR ---
BANG GODWIN Fall Risk Medications (ELAVIL, ATIVAN, METHOCARBAMOL, METOPROLOL, OXYCODONE) present and NOT receiving anticoagulants. Signed: 09/19/19 at 2137 by HANNA JACKSON
[2019-09-19] MEDS: OXYcodone IR 5MG TABLET PO PRN (22:46)
[2019-09-19] MEDS: AMITRIPTYLINE 25 MG TABLET PO PRN (22:46)
[2019-09-19] MEDS ORDERED: ARTIFICIAL TEARS 15 DROP/ML BOTTLE EACHEYE PRN (23:00)
[2019-09-20] VITALS: BP 107/72
[2019-09-20] MEDS: LORazepam 2 MG/ML, 1ML IVPush PRN (00:21)
[2019-09-20 00:57] VITALS: BP 121/78
[2019-09-20 01:33] VITALS: BP 119/82
[2019-09-20] MEDS: THYROID 30 MG TABLET PO SCH (05:16)
[2019-09-20] MEDS: OXYcodone IR 5MG TABLET PO PRN ×2 (05:21→14:36)
[2019-09-20 06:02] LABS: ALBUMIN 3.9 g/dL (3.4-5.0); ANION GAP 5 mmol/L (5-15); CALCIUM 8.2 mg/dL (8.5-10.1); CHLORIDE 108 mmol/L (98-107); CREATININE 0.71 mg/dL (0.55-1.02)
[2019-09-20 06:12] LABS: BASOPHILS # (AUTO) 0.03 x10^3/uL (0-0.1); BASOPHILS % (AUTO) 1 % (0-1); EOSINOPHILS # (AUTO) 0.11 x10^3/uL (0-0.4); EOSINOPHILS % (AUTO) 3 % (1-7); LYMPHOCYTES # (AUTO) 0.94 x10^3/uL (1-3.4); LYMPHOCYTES % (AUTO) 26 % (22-44); MD NO; MEAN CORPUSCULAR HEMOGLOBIN 30.4 pg (27.0-34.8); MEAN CORPUSCULAR HGB CONC 33.6 g/dL (32.4-35.8); MEAN CORPUSCULAR VOLUME 90.6 fL (80-100); MEAN PLATELET VOLUME 7.6 fL (7.4-10.4); MONOCYTES # (AUTO) 0.49 x10^3/uL (0.2-0.8); MONOCYTES % (AUTO) 14 % (2-9); NEUTROPHILS # (AUTO) 2.06 x10^3/uL (1.8-6.8); NEUTROPHILS % (AUTO) 57 % (42-75); PLATELET COUNT 135 x10^3/uL (130-400); RED BLOOD COUNT 3.49 x10^6/uL (3.82-5.3); RED CELL DISTRIBUTION WIDTH 13.8 % (9.6-15.2)
[2019-09-20 08:00] VITALS: BP 133/84
[2019-09-20] MEDS: POTASSIUM CHLORIDE 10 MEQ TABLET.ER PO SCH (09:26)
[2019-09-20] MEDS: ONDANSETRON 2MG/ML, 2ML IVPush PRN (09:26)
[2019-09-20] MEDS: OMEPRAZOLE 20 MG CAPSULE.DR PO SCH (09:26)
[2019-09-20] MEDS: METHOCARBAMOL 500 MG TABLET PO PRN (09:26)
[2019-09-20] MEDS: ONDANSETRON 4 MG TABLET PO SCH (09:26)
[2019-09-20] MEDS: METOPROLOL TARTRATE 100 MG TABLET PO SCH (09:26)
[2019-09-20] MEDS ORDERED: ACETAMINOPHEN 325 MG TABLET PO PRN (09:30)
[2019-09-20] MEDS ORDERED: ENOXAPARIN 40 MG/0.4 ML SQ SCH (09:30)
[2019-09-20] MEDS ORDERED: CALCIUM GLUCONATE 4.6 MEQ/10 ML IV ONE (12:00)
[2019-09-20 12:27] VITALS: BP 121/85
[2019-09-20] MEDS ORDERED: ALBUMIN HUMAN 5%, 25G/500ML IV PRN (12:30)
[2019-09-20] MEDS ORDERED: CALCIUM GLUCONATE 4.6 MEQ/10 ML IV PRN (12:30)
[2019-09-20] MEDS ORDERED: ACID1TAB7 PO (13:14)
[2019-09-20] MEDS ORDERED: LACTOBACILLUS CHEW TABLET PO SCH (16:00)
[2019-09-21] MEDS ORDERED: ALBUMIN HUMAN 5%, 25G/500ML IV SCH (09:00)
== END 2019-09-20 15:54 | disposition home health service (06) | DRG 91 ==
LOC: ED 15:24 → EDIP 16:13 → 4NE 20:42 → 4WST 09-12 12:15 → 4EST 09-19 21:40 → DCLOUNGE 09-20 15:44
PROVIDERS: ADMIT Internal Medicine; ATTEND Internal Medicine
PROC: 02HV33Z Insertion of Infusion Device into Superior Vena Cava, Percutaneous Approach (ICD-10-PCS; 2019-09-11)
PROC: 05JY3ZZ Inspection of Upper Vein, Percutaneous Approach (ICD-10-PCS; 2019-09-11)
PROC: B548ZZA Ultrasonography of Superior Vena Cava, Guidance (ICD-10-PCS; 2019-09-11)
PROC: B5131ZA Fluoroscopy of Right Jugular Veins using Low Osmolar Contrast, Guidance (ICD-10-PCS; 2019-09-11)
PROC: 6A551Z3 Pheresis of Plasma, Multiple (ICD-10-PCS; principal; 2019-09-12)
DX: G71.19 Other specified myotonic disorders (principal); G93.41 Metabolic encephalopathy; E87.2 Acidosis; E83.51 Hypocalcemia; E86.0 Dehydration; G43.109 Migraine with aura, not intractable, without status migrainosus; G47.00 Insomnia, unspecified; I10 Essential (primary) hypertension; R33.9 Retention of urine, unspecified; R55 Syncope and collapse; R63.0 Anorexia; Z79.899 Other long term (current) drug therapy
CPT/HCPCS: 36415; 36514; 36556; 76937; 77001; 80053; 80069; 82010; 82140; 82962; 83605; 83735; 84439; 84443; 84481; 84703; 85014; 85018; 85025; 85384; 93005; 94640; 96374; 99156; 99157; 99285; C1894; G0378; J0610; J1170; J1650; J2250; J2405; J3010; J7613; P9045; Q0162; C1751; J1200; J1642; J2060; J2270; J2310; J7040; J7120; Q0163

== ENCOUNTER 2019-09-22 12:54 | Emergency (ER) | payer MEDICARE ==
[~2019-09-22] VITALS: Ht 162.6 cm; Wt 52.2 kg
[~2019-09-22 12:54] MED LIST changes: -ONDA-89 PO; +ONDA4TAB12 PO
--- NOTE | 2019-09-22 13:00 | NUR ---
BIB MEDICAL TRANSPORT/AMBULANCE FROM [facility] FOR NEUROMUSCULAR SPASMS "MAKING ME FEEL SHORT OF BREATH, THE SPASMS CAN CAUSE THIS FOR ME, I WAS JUST HERE FOR 9 DAYS FOR THE SAME THING, THEY HAD TO GIVE ME INFUSIONS." DENIES CP, ANY PAIN, SOB AT THIS TIME. REQUEST OXYGEN BE REMOVED "IT MAKES MY THROAT DRY." VSS. EKG COMPLETED. 20G IV LAC ESTABLISHED BY EMS. PT REFUSED ALL MEDICATION IN ROUTE PER EMS "STATING SHE DIDN'T WANT BENADRYL, ZOFRAN OR ANTHING TO HELP SPASMS." CONT PULSE OX, BP, CARDIAC MONITORS IN PLACE. VSS. SR ON MONITOR. PT ABLE TO SPEAK IN FULL SENTENCES. A&OX4. PT MOVING EXTREMITIES WITH INTERMITTENT SPASMS NOTED TO HANDS. PT ABLE TO OPEN MOUTH FOR ORAL TEMP, COOPERATIVE. ASSESSMENT COMPLETED. DR. MENDENHALL AT BEDSIDE FOR EVALUATION.
--- NOTE | 2019-09-22 13:15 | NUR ---
PT ARRIVES WITH WET PANTS/UNDERWARE "I ACCIDENTALLY URINATED MYSELF ON THE WAY HERE, HAD TO GO BAD." PT CLEANSED, DISPOSABLE UNDERWARE AND LINA-PAD IN PLACE WITH SABAS PAD. PT REPORTS SHE IS ON PERIOD, REMOVED ON TAMPON AT THIS TIME. PT ABLE TO MOVE SELF IN BED, LIFT HIPS FOR CLEANSING AND UNDERWARE/PAD PLACEMENT. PT ASSITED INTO GOWN, ALL CLOTHING REMOVED PER MD. WARM BLANKETS PROVIDED FOR COMFORT.
[2019-09-22] MEDS ORDERED: SODIUM CHLORIDE FLUSH 10ML SYR IVF ONE (13:30)
--- NOTE | 2019-09-22 13:35 | NUR ---
PT RESTING COMFORTABLY, TEXTING ON CELL PHONE. VSS. PER LAB, PT REFUSED LABS, DISCUSSED WITH DR. MENDENHALL, AWARE.
--- NOTE | 2019-09-22 14:16 | NUR ---
PT CONTINUES TO REFUSE LABS, REQUESTS TO HAVE "MY PORT ACCESSED, I CAN'T HANDLE TO PAIN OF THEM POKING ME WITH A NEEDLE FOR THE LABS." DISCUSSED WITH DR. MENDENHALL, AWARE, PER MD TO HOLD LABS AND PORT ACCESS AT THIS TIME. TO DISCUSS POC WITH PT. VSS. SR ON MONITOR, DENIES NEED TO USE RESTROOM. CALL LIGHT IN REACH. FALL PRECUATIONS IN PLACE. CONTINUES USING/TEXTING ON CELL PHONE
--- NOTE | 2019-09-22 14:29 | NUR ---
DR. MENDENHALL AT BEDSIDE DISCUSSING POC WITH PT AND CONSULT WITH DR. PATTERSON AND DR. TORRES. PT UPSET STATING "IF YOU'RE NOT GOING TO GIVE ME IV INFUSIONS THEN I WILL JUST GO HOME, GET ME OUT OF HERE, I WANT TO GO HOME THEN, I DON'T WANT ANY MEDICATIONS." PT REFUSING MEDICATIONS OFFERED BY MD PRIOR TO DISHCARGE. NO PORT ACCESS OR LABS PER DR. PARDO. PT TO BE DISCHARGED PER PT REQUEST. PT CONTINUES TO MOVE ALL EXTREMITIES AND SPEAK IN CLEAR FULL SENTENCES. NEURO AND CMS INTACT.
--- NOTE | 2019-09-22 15:20 | NUR ---
MARIA GUADALUPE RN AT BEDSIDE TO DISCHARGE PT, PT GIVEN DISCHARGE INSTRUCTIONS, VERBALIZED UNDERSTANDING, HANDOUTS IN HAND.STILL AWAITING PT'S RIDE. MOTHER IS ON WAY TO [place] PT AND BRINGING PT CLEAN/DRY CLOTHING. DENIES ANY CP, SOB, DYSPNEA, AND ANY PAIN. VSS. RESTING COMFORTABLY WITH WARM BLANKETS. FALL PRECAUTIONS IN PLACE. CONTINUE TO AWAIT MOTHER FOR DISCHARGE.
[2019-09-22 15:21] VITALS: BP 128/98
--- NOTE | 2019-09-22 15:55 | NUR ---
PT RESTING IN POSITION OF COMFORT. VSS. CONTINUE AWAITING MOTHER FOR DISCHARGE AND CLOTHING. SPEAKING IN FULL SENTENCES, MOVING ALL EXTREMITIES, NO SPASMS NOTED OR REPORTED BY PT, "ONCE I GET EVERYTHING MOVING AGAIN I'M GOOD, IT'S BETTER." DENIES CP, SOB OR ANY PAIN. VSS. CALL LIGHT IN REACH.
--- NOTE | 2019-09-22 15:59 | NUR ---
BEDSIDE REPORT AND CARE TO DENISHA ALVAREZ AT THIS TIME.
== END 2019-09-22 16:20 | disposition home or self-care (01) ==
LOC: ED 15:06
DX: M62.838 Other muscle spasm (principal); I10 Essential (primary) hypertension
CPT/HCPCS: 71045; 93005; 99283

== ENCOUNTER 2019-10-06 09:37 | Emergency (ER) | payer MEDICARE ==
[~2019-10-06] VITALS: Ht 165.1 cm; Wt 62.0 kg
[~2019-10-06 09:37] MED LIST changes: +ONDA-89 PO; -ONDA4TAB12 PO
--- NOTE | 2019-10-06 09:53 | NUR ---
PT BIB EMS FROM HOME. PER EMS, PT'S HOME HEALTH RN CALLED EMS FOR INCREASED MUSCLE SPASMS WITH ACCOMPANIED POST-ICTAL PHASE. PT HAS HX OF MUSCLE SPASMS AND PER EMS PT USED TO DO IV IGG INFUSIONS AT HOME BUT HAS BEEN CHANGING MEDS AND MUSCLE SPASMS HAVE BEEN INCREASING. PT AAO X 4, NAD, ROOM AIR. PT IN GURNEY AND IN GOWN AND ON FULL MONITOR. PT EXPERIENCING SPASMS BUT ABLE TO MAINTAIN CONVERSATION AND AIRWAY. PT ABLE TO STOP SPASMING AT TIMES AND FALL ASLEEP, WHEN PT AWAKES SHE BEGINS SPASMING AGAIN AND IS CONFUSED BUT VERY EASILY REORIENTED.
--- NOTE | 2019-10-06 10:30 | NUR ---
MEDICAL STUDENT AT BEDSIDE FOR ASSESSMENT.
[2019-10-06] MEDS ORDERED: LORazepam 1MG TABLET PO ONE (11:00)
[2019-10-06] MEDS ORDERED: LORazepam 1MG TABLET ONE (11:07)
--- NOTE | 2019-10-06 11:09 | NUR ---
PT MEDICATED PER ORDERS.
--- NOTE | 2019-10-06 11:56 | NUR ---
PT ASSISTED ON BED DICKERSON.
--- NOTE | 2019-10-06 12:05 | NUR ---
PT ASSISTED OFF BED DICKERSON.
--- NOTE | 2019-10-06 13:43 | NUR ---
AT BEDSIDE FOR ASSESSMENT.
[2019-10-06] MEDS ORDERED: SODIUM CHLORIDE 0.9% 1,000 ML IV SCH ×2 (14:00→15:00)
[2019-10-06] MEDS ORDERED: HYDROmorphone 1 MG/ML, 1ML INJ IV ONE (14:00)
[2019-10-06] MEDS ORDERED: DIPHENHYDRAMINE 25 MG CAPSULE PO ONE (14:00)
[2019-10-06] MEDS ORDERED: HYDROmorphone 1 MG/ML, 1ML INJ ONE (14:02)
[2019-10-06] MEDS ORDERED: DIPHENHYDRAMINE 25 MG CAPSULE ONE (14:02)
[2019-10-06] MEDS ORDERED: DIPHENHYDRAMINE 50 MG/ML, 1ML ONE (14:04)
--- NOTE | 2019-10-06 14:10 | NUR ---
PT MEDICATED PER ORDERS.
[2019-10-06] MEDS ORDERED: DIPHENHYDRAMINE 50 MG/ML, 1ML IVPush ONE (14:30)
[2019-10-06 15:36] VITALS: BP 120/74
--- NOTE | 2019-10-06 15:53 | NUR ---
Patient/Caregiver given discharge instructions and they have confirmed that they understand the instructions. Patient ambulatory with steady gait.
== END 2019-10-06 16:18 ==
LOC: ED 14:28
DX: G71.19 Other specified myotonic disorders (principal); R00.0 Tachycardia, unspecified; R53.83 Other fatigue; M54.9 Dorsalgia, unspecified; R63.0 Anorexia
CPT/HCPCS: 96361; 96374; 96375; 99285; J1170; J1200; J7030

== ENCOUNTER 2019-12-15 12:40 | Emergency (ER) | payer MEDICARE ==
[~2019-12-15] VITALS: Ht 165.1 cm; Wt 56.0 kg
--- NOTE | 2019-12-15 13:23 | NUR ---
BREAK NOTE FOR RN: PT LAYING BACK IN BED, TREMOR-LIKE ACTIVITY WITH LEGS, WHICH IS REPORTEDLY AMONG THE NORMAL SYMPTOMS PT SUFFERS FROM. SIDE RAILS UP, AWAITING FURTHER ORDERS.
[2019-12-15 13:27] VITALS: BP 120/82
[2019-12-15] MEDS ORDERED: DIPHENHYDRAMINE 50 MG/ML, 1ML IM ONE (13:30)
--- NOTE | 2019-12-15 13:36 | NUR ---
BREAK NOTE FOR RN: WHEN OUT OF ROOM, PT HAS MILD TREMORS. WHEN RN ENTERS ROOM, PT STARTS ROCKING SIDE TO SIDE, GRASPING THE RAILING AND INCREASING ACTIVITY. DISCUSSION WITH ERMD REGARDING PT'S STATUS. ERMD TO COME ASSESS PT AND DISCUSS PLAN OF CARE OPTIONS.
[2019-12-15] MEDS ORDERED: DIPHENHYDRAMINE 50 MG/ML, 1ML ONE (13:46)
[2019-12-15] MEDS ORDERED: LORazepam 2 MG/ML, 1ML ONE (13:46)
[2019-12-15] MEDS ORDERED: LORazepam 2 MG/ML, 1ML IM PRN (14:00)
--- NOTE | 2019-12-15 14:02 | NUR ---
break note: DISCUSSION BTWN ERMD AND PT. PT MEDICATED PER EMAR WITH SECOND RN HELP. PT AGREES TO MED ADMINISTRATION STATING: "IT HELPS"
--- NOTE | 2019-12-15 14:19 | NUR ---
ASSIST RN: PT UP FOR DC. PT STATED HER MOTHER CAN PICK HER UP FROM ED. CALLED PT MOTHER WHO STATED SHE CAN BE HERE IN ABOUT 40MIN. WILL INFORM PRIMARY RN.
--- NOTE | 2019-12-15 15:03 | NUR ---
PT SITTING IN BED, NO SIGNS OF DISTRESS, NO TREMORS NOTED. VSS. WILL CONTINUE TO MONITOR.
== END 2019-12-15 15:32 | disposition home or self-care (01) ==
LOC: ED 13:28
DX: G71.19 Other specified myotonic disorders (principal); I10 Essential (primary) hypertension; R94.31 Abnormal electrocardiogram [ECG] [EKG]
CPT/HCPCS: 93005; 96372; 99284; J1200; J2060

== ENCOUNTER 2020-03-17 16:31 | Inpatient (IN) | payer MEDICARE ==
[~2020-03-17] VITALS: Ht 165.1 cm; Wt 57.5 kg
--- NOTE | 2020-03-17 16:40 | NUR ---
PT BIB [facility] FROM HOME FOR SEIZURE-LIKE EPISODE. PER EMS, PT HAS [facility] OR NEUROMYOTONIA AND HAS EPISODES WHERE SHE TENSES UP AND CAN'T TALK OR MOVE HER BODY. PER EMS, PT IS USUALLY TREATED WITH VERSED 5MG AND BENADRYL 50MG (BECAUSE SHE GETS RASH FROM VERSED). EMS STATED PT HAD RECENT UTI, WAS ON MACROBID, MIGHT HAVE TRIGGERED THIS EPISODE. PT ARRIVES TO ED WITH EYES OPEN, NONVERBAL, NOT FOLLOWING COMMANDS. RR 12. EKG DONE ON ARRIVAL. ERP IN ROOM IMMEDIATELY.
--- NOTE | 2020-03-17 17:06 | NUR ---
BREAK RN: PT SUPINE ON BED, BLINKS EYES TO STIMULUS, AMMONIA INHALANT HELD OVER NARES, BLINKS EYES AND SOME EYE WATERING NOTED BUT NO OTHER RESPONSE NOTED. RESP EVEN AND VSS. ASSESSMENT REVIEWED WITH ER BECKY OLMSTEAD.
--- NOTE | 2020-03-17 17:13 | NUR ---
BREAK RN: PTS MOTHER, MONTY CHANDRA CALLED FOR UPDATE. SHE IS ON HER WAY TO THE [facility] AND SHOULD ARRIVE BY 1814. CELL [phone]. UPDATED
[2020-03-17 17:21] LABS: BASOPHILS # (AUTO) 0.02 x10^3/uL (0-0.1); BASOPHILS % (AUTO) 0 % (0-1); EOSINOPHILS # (AUTO) 0.06 x10^3/uL (0-0.4); EOSINOPHILS % (AUTO) 1 % (1-7); LYMPHOCYTES % (AUTO) 28 % (22-44); MD NO; MEAN CORPUSCULAR HEMOGLOBIN 29.9 pg (27.0-34.8); MEAN CORPUSCULAR HGB CONC 34.4 g/dL (32.4-35.8); MEAN CORPUSCULAR VOLUME 87.1 fL (80-100); MEAN PLATELET VOLUME 8.3 fL (7.4-10.4); MONOCYTES # (AUTO) 0.65 x10^3/uL (0.2-0.8); MONOCYTES % (AUTO) 13 % (2-9); NEUTROPHILS # (AUTO) 2.94 x10^3/uL (1.8-6.8); NEUTROPHILS % (AUTO) 58 % (42-75); PLATELET COUNT 222 x10^3/uL (130-400); RED BLOOD COUNT 4.14 x10^6/uL (3.82-5.3); RED CELL DISTRIBUTION WIDTH 13.2 % (9.6-15.2)
[2020-03-17 17:33] LABS: ALBUMIN 3.6 g/dL (3.4-5.0); ANION GAP 5 mmol/L (5-15); CALCIUM 9.3 mg/dL (8.5-10.1); CHLORIDE 105 mmol/L (98-107); CREATININE 0.92 mg/dL (0.55-1.02)
--- NOTE | 2020-03-17 18:02 | NUR ---
PT MORE AWAKE NOW. BLINKS AND TURNS HEAD. FOLLOWING COMMANDS (SQUEEZES R HAND AND MOVES R FOOT). NOT MOVING LUE OR LLE AT THIS TIME. ERP AWARE OF PT CONDITION. VSS. NO FAMILY/VISITORS PRESENT. Addendum: 03/17/20 at 1810 by HBENSON PT MOVES MOUTH BUT STILL WITH NO VERBAL RESPONSE.
--- NOTE | 2020-03-17 18:34 | NUR ---
MOTHER ARRIVED, STATES PT "HASN'T HAD A CATATONIC REACTION LIKE THIS, WHERE SHE PASSES OUT AND IS UNRESPONSIVE, IN ABOUT A YEAR. I'VE NEVER COME TO THE ED AND SHE STILL HASN'T BEEN ABLE TO TALK." PT COMMUNICATING WITH MOTHER BY BLINKING ONCE FOR "YES" AND TWICE FOR "NO" AT THIS TIME. ERP UPDATED ON PT STATUS, WILL BE IN TO RECHECK PT AND SPEAK WITH MOTHER.
--- NOTE | 2020-03-17 18:42 | NUR ---
ERP AT BS TO SPEAK WITH MOTHER.
--- NOTE | 2020-03-17 19:02 | NUR ---
PT SAYING "YES" AND "NO" NOW. REPORTED TO KARSTEN ALVAREZ.
--- NOTE | 2020-03-17 21:01 | NUR ---
LUNCH BREAK NOTE: POWER PORT ACCESSED FOR PENDING ADMIT. ADMIT MD AT BEDSIDE. PT SEEN BY DR. OROZCO. AWAITING FURTHER ORDERS. PT OBSERVED TO BE USING CELL PHONE TO COMMUNICATE WITH MOTHER/ADMIT MD BY TYPING WITH RIGHT INDEX FINGER.
--- NOTE | 2020-03-17 21:31 | NUR ---
PT PLACED ON BED DICKERSON, PT ASSISTED STAFF ON AND OFF BED DICKERSON BY ROLLING AND HOLDING HERSELF UP TO RAIL FOR OVER A MIN AT TIMES AND ALSO COMUNICATING WITH 1 BLINK FOR YES AND 2 BLINKS FOR NO.
[2020-03-17] MEDS ORDERED: BISACODYL 10 MG SUPP PR PRN (22:00)
[2020-03-17] MEDS ORDERED: POLYETHYLENE GLYCOL 17 GM PACKET PO PRN (22:00)
[2020-03-17] MEDS ORDERED: LORazepam 1MG TABLET PO SCH (22:00)
[2020-03-17] MEDS ORDERED: AMITRIPTYLINE 25 MG TABLET PO PRN (22:00)
[2020-03-17] MEDS ORDERED: ACETAMINOPHEN 325 MG TABLET PO PRN (22:00)
[2020-03-17 23:00] VITALS: BP 154/99
[2020-03-17] MEDS: HEPARIN 5,000 UNITS/ML, 1ML SQ SCH (23:00)
[2020-03-18 00:34] VITALS: BP 109/72
[2020-03-18] MEDS: DIPHENHYDRAMINE 50 MG CAPSULE PO SCH ×4 (01:34→20:52)
[2020-03-18] MEDS: TIZANIDINE 4MG TABLET PO SCH ×2 (01:34→20:52)
[2020-03-18] MEDS: DIAZEPAM 5 MG TABLET PO PRN ×2 (01:34→13:29)
[2020-03-18] MEDS: HEPARIN 5,000 UNITS/ML, 1ML SQ SCH ×4 (01:35→22:21)
[2020-03-18] MEDS: SODIUM CHLORIDE FLUSH 10ML SYR IVF SCH ×3 (01:36→20:53)
[2020-03-18 02:00] VITALS: BP 149/63
[2020-03-18 05:07] LABS: AMPHETAMINE SCREEN, URINE Negative (Negative); BARBITURATE SCREEN, URINE Negative (Negative); BENZODIAZEPINE SCREEN, URINE Positive (Negative); CANNABINOID SCREEN, URINE Negative (Negative); COCAINE SCREEN, URINE Negative (Negative); METHADONE SCREEN, URINE Negative (Negative); OPIATE SCREEN, URINE Negative (Negative)
[2020-03-18 08:34] VITALS: BP 134/87
[2020-03-18] MEDS: SUMATRIPTAN SUCC HOMEMEDPO SCH (09:00)
[2020-03-18] MEDS: [UNRECOGNIZED DRUG - OTHER] HOMEMEDPO SCH (09:00)
[2020-03-18] MEDS: NAPROXEN SOD HOMEMEDPO SCH (09:00)
[2020-03-18] MEDS: ONDANSETRON 4 MG TABLET PO SCH (13:30)
[2020-03-18] MEDS: OMEPRAZOLE 20 MG CAPSULE.DR PO SCH (13:30)
[2020-03-18] MEDS: OMEGA-3/FISH OIL CAPSULE PO SCH (13:30)
[2020-03-18] MEDS: METOPROLOL TARTRATE 100 MG TAB PO SCH (13:30)
[2020-03-18] MEDS: LACTOBACILLUS CHEW TABLET PO SCH ×3 (13:31→20:52)
[2020-03-18] MEDS: SENNA/DOCUSATE TABLET PO SCH (13:31)
[2020-03-18] MEDS: POTASSIUM CHLORIDE 20 MEQ TAB.ER.PRT PO SCH (13:31)
[2020-03-18] MEDS: CHOLECALCIFEROL 1,000 UNIT TABLET PO SCH (13:31)
[2020-03-18 14:33] VITALS: BP 156/106
[2020-03-18 15:01] LABS: MICROSCOPIC NOT IND
[2020-03-18 19:39] VITALS: BP 133/89
[2020-03-18] MEDS: FAMOTIDINE 40 MG TABLET PO SCH (20:52)
[2020-03-18] MEDS: LORazepam 2 MG/ML, 1ML IVPush PRN (22:58)
[2020-03-19 01:11] VITALS: BP 111/75
[2020-03-19] MEDS: DIPHENHYDRAMINE 50 MG CAPSULE PO SCH ×4 (03:35→22:45)
[2020-03-19] MEDS: LORazepam 2 MG/ML, 1ML IVPush PRN ×4 (05:02→19:52)
[2020-03-19] MEDS: HEPARIN 5,000 UNITS/ML, 1ML SQ SCH ×3 (06:34→22:45)
[2020-03-19 07:06] VITALS: BP 123/83
[2020-03-19] MEDS: SUMATRIPTAN SUCC HOMEMEDPO SCH (09:00)
[2020-03-19] MEDS: [UNRECOGNIZED DRUG - OTHER] HOMEMEDPO SCH (09:00)
[2020-03-19] MEDS: NAPROXEN SOD HOMEMEDPO SCH (09:00)
[2020-03-19 10:40] VITALS: BP 106/74
[2020-03-19] MEDS: SODIUM CHLORIDE FLUSH 10ML SYR IVF SCH ×2 (10:48→22:46)
[2020-03-19] MEDS: OMEGA-3/FISH OIL CAPSULE PO SCH (10:48)
[2020-03-19] MEDS: ONDANSETRON 4 MG TABLET PO SCH (10:48)
[2020-03-19] MEDS: METOPROLOL TARTRATE 100 MG TAB PO SCH (10:49)
[2020-03-19] MEDS: OMEPRAZOLE 20 MG CAPSULE.DR PO SCH (10:49)
[2020-03-19] MEDS: CHOLECALCIFEROL 1,000 UNIT TABLET PO SCH (10:49)
[2020-03-19] MEDS: POTASSIUM CHLORIDE 20 MEQ TAB.ER.PRT PO SCH (10:49)
[2020-03-19] MEDS: LACTOBACILLUS CHEW TABLET PO SCH ×3 (10:49→22:45)
[2020-03-19] MEDS: SENNA/DOCUSATE TABLET PO SCH (10:50)
[2020-03-19] MEDS ORDERED: PREG75CA PO (11:09)
[2020-03-19 12:45] VITALS: BP 124/83
[2020-03-19] MEDS ORDERED: SUMATRIPTAN 100 MG TABLET PO PRN (13:30)
[2020-03-19 14:48] VITALS: BP 136/91
[2020-03-19 18:16] VITALS: BP 119/86
[2020-03-19] MEDS: TIZANIDINE 4MG TABLET PO SCH (21:00)
[2020-03-19] MEDS: FAMOTIDINE 40 MG TABLET PO SCH (22:45)
[2020-03-20] MEDS: LORazepam 2 MG/ML, 1ML IVPush PRN ×3 (01:10→12:56)
[2020-03-20 02:07] VITALS: BP 123/88
[2020-03-20] MEDS ORDERED: LORazepam 2 MG/ML, 1ML IVPush ONE (04:00)
[2020-03-20] MEDS ORDERED: DIAZEPAM 5 MG/ML, 2ML IV ONE (04:00)
[2020-03-20 05:17] VITALS: BP 126/85
[2020-03-20] MEDS: DIPHENHYDRAMINE 50 MG CAPSULE PO SCH ×2 (05:45→11:22)
[2020-03-20 07:20] VITALS: BP 128/89
[2020-03-20] MEDS: HEPARIN 5,000 UNITS/ML, 1ML SQ SCH (08:07)
[2020-03-20] MEDS: OMEGA-3/FISH OIL CAPSULE PO SCH (08:08)
[2020-03-20] MEDS: SODIUM CHLORIDE FLUSH 10ML SYR IVF SCH (08:08)
[2020-03-20] MEDS: POTASSIUM CHLORIDE 20 MEQ TAB.ER.PRT PO SCH (08:08)
[2020-03-20] MEDS: METOPROLOL TARTRATE 100 MG TAB PO SCH (08:09)
[2020-03-20] MEDS: OMEPRAZOLE 20 MG CAPSULE.DR PO SCH (08:09)
[2020-03-20] MEDS: LACTOBACILLUS CHEW TABLET PO SCH (08:09)
[2020-03-20] MEDS: SENNA/DOCUSATE TABLET PO SCH (08:10)
[2020-03-20] MEDS: ONDANSETRON 4 MG TABLET PO SCH (08:10)
[2020-03-20] MEDS: CHOLECALCIFEROL 1,000 UNIT TABLET PO SCH (08:10)
[2020-03-20] MEDS: [UNRECOGNIZED DRUG - OTHER] HOMEMEDPO SCH (09:00)
[2020-03-20] MEDS: NAPROXEN SOD HOMEMEDPO SCH (09:00)
[2020-03-20] MEDS: SUMATRIPTAN SUCC HOMEMEDPO SCH (09:00)
[2020-03-20 12:28] VITALS: BP 111/72
== END 2020-03-20 15:36 | disposition home or self-care (01) | DRG 92 ==
LOC: ED 18:19 → EDIP 20:14 → 3N 22:50 → 4WST 03-20 05:07
PROVIDERS: ADMIT Family Medicine; ATTEND Hospitalist
DX: G71.19 Other specified myotonic disorders (principal); N39.0 Urinary tract infection, site not specified; I10 Essential (primary) hypertension; G43.009 Migraine without aura, not intractable, without status migrainosus; G89.29 Other chronic pain; Z83.3 Family history of diabetes mellitus; Z80.1 Family history of malignant neoplasm of trachea, bronchus and lung; Z79.899 Other long term (current) drug therapy
CPT/HCPCS: 36415; 80048; 80307; 81003; 82040; 82947; 82962; 83735; 85025; 93005; 99285; G0378; J1644; Q0162; J2060

== ENCOUNTER 2020-09-04 14:42 | Observation (INO) | payer MEDICARE ==
[~2020-09-04] VITALS: Ht 167.6 cm; Wt 58.3 kg
[~2020-09-04 14:42] MED LIST changes: +PREG75CA PO; -SUMA1TAB PO; +SUMA1TAB12 PO
[2020-09-04] MEDS ORDERED: SODIUM CHLORIDE FLUSH 10ML SYR IVF ONE (15:00)
[2020-09-04 15:19] LABS: BASOPHILS % (AUTO) 1 % (0-1); EOSINOPHILS % (AUTO) 2 % (1-7); LYMPHOCYTES % (AUTO) 23 % (22-44); MEAN CORPUSCULAR HEMOGLOBIN 30.4 pg (27.0-34.8); MEAN CORPUSCULAR HGB CONC 34.3 g/dL (32.4-35.8); MEAN PLATELET VOLUME 7.4 fL (7.4-10.4); MONOCYTES % (AUTO) 10 % (2-9); NEUTROPHILS % (AUTO) 63 % (42-75); PLATELET COUNT 217 x10^3/uL (130-400); RED BLOOD COUNT 4.62 x10^6/uL (3.82-5.3); RED CELL DISTRIBUTION WIDTH 12.6 % (9.6-15.2)
[2020-09-04 15:21] LABS: MD NO
[2020-09-04 15:30] LABS: ALBUMIN 4.2 g/dL (3.4-5.0); ANION GAP 4 mmol/L (5-15); CALCIUM 9.1 mg/dL (8.5-10.1); CHLORIDE 106 mmol/L (98-107); CREATININE 1.07 mg/dL (0.55-1.02)
[2020-09-04] MEDS: PLEASE ENTER ALLERGIES MC SCH ×2 (15:30→21:19)
--- NOTE | 2020-09-04 16:10 | NUR ---
REPORT FROM YESY. PT TO BE ADMITTED. [facility] AT BEDSIDE
[2020-09-04] MEDS ORDERED: AMITRIPTYLINE 25 MG TABLET PO PRN (16:30)
[2020-09-04] MEDS ORDERED: ACETAMINOPHEN 325 MG TABLET PO PRN (16:30)
[2020-09-04] MEDS: DIPHENHYDRAMINE 25 MG CAPSULE PO SCH ×2 (16:30→21:19)
[2020-09-04] MEDS ORDERED: IMMUNE GLOB (GAMUNEX) 10GM/100ML IV ONE (17:00)
--- NOTE | 2020-09-04 17:00 | NUR ---
PT RESTING, IN CATATONIC STATE. VSS.
--- NOTE | 2020-09-04 17:28 | NUR ---
REPORT TO SUMMER
[2020-09-04] MEDS ORDERED: DIPHENHYDRAMINE 50 MG/ML, 1ML IVPush ONE (18:30)
[2020-09-04] MEDS ORDERED: LORazepam 2 MG/ML, 1ML IVPush ONE (18:30)
[2020-09-04 19:00] VITALS: BP 147/91
[2020-09-04] MEDS ORDERED: IMMUNE GLOBULIN IV ONE (19:00)
[2020-09-04] MEDS ORDERED: BENZONATATE 100 MG CAPSULE PO PRN (19:00)
[2020-09-04] MEDS: LORazepam 1MG TABLET PO SCH (21:00)
[2020-09-04] MEDS ORDERED: FAMOTIDINE 20 MG TABLET PO SCH (21:00)
[2020-09-04] MEDS: ONDANSETRON 2MG/ML, 2ML IVPush PRN (21:18)
[2020-09-04] MEDS: LACTATED RINGERS 1,000 ML IV SCH (21:18)
[2020-09-04] MEDS: LACTOBACILLUS CHEW TABLET PO SCH (22:12)
[2020-09-04] MEDS: METOPROLOL TARTRATE 100 MG TAB PO SCH (23:00)
[2020-09-04 23:44] VITALS: BP 127/81
[2020-09-04] MEDS: PREGABALIN 75 MG CAPSULE PO SCH (23:46)
[2020-09-05 00:15] VITALS: BP 122/81
[2020-09-05 04:50] LABS: ANION GAP 6 mmol/L (5-15); CALCIUM 8.8 mg/dL (8.5-10.1); CHLORIDE 107 mmol/L (98-107)
[2020-09-05 05:04] LABS: CREATININE 0.94 mg/dL (0.55-1.02)
[2020-09-05] MEDS: DIPHENHYDRAMINE 25 MG CAPSULE PO SCH ×3 (05:04→17:03)
[2020-09-05 07:42] VITALS: BP 131/87
[2020-09-05] MEDS: LACTATED RINGERS 1,000 ML IV SCH (08:35)
[2020-09-05] MEDS ORDERED: NAPROXEN SOD HOMEMEDPO SCH (09:00)
[2020-09-05] MEDS ORDERED: CHOLECALCIFEROL 1,000 UNIT TABLET PO SCH (09:00)
[2020-09-05] MEDS: ONDANSETRON 4 MG TABLET PO SCH ×2 (09:00→10:39)
[2020-09-05] MEDS ORDERED: METOPROLOL TARTRATE 100 MG TAB PO SCH (09:00)
[2020-09-05] MEDS ORDERED: POTASSIUM CHLORIDE 10 MEQ TABLET.ER PO SCH (09:00)
[2020-09-05] MEDS ORDERED: SUMATRIPTAN SUCC HOMEMEDPO SCH (09:00)
[2020-09-05] MEDS: LORazepam 1MG TABLET PO SCH ×2 (10:37→17:03)
[2020-09-05] MEDS: PREGABALIN 75 MG CAPSULE PO SCH ×2 (10:38→17:03)
[2020-09-05] MEDS: LACTOBACILLUS CHEW TABLET PO SCH ×2 (10:39→17:03)
[2020-09-05] MEDS: METOPROLOL TARTRATE 100 MG TAB PO SCH (10:39)
[2020-09-05] MEDS: ONDANSETRON 2MG/ML, 2ML IVPush PRN (10:51)
[2020-09-05] MEDS ORDERED: IMMUNE GLOBULIN IV ONE (11:00)
[2020-09-05 12:14] VITALS: BP 130/81
== END 2020-09-05 18:05 | disposition home or self-care (01) ==
LOC: ED 17:24 → INTOOBSV 18:08 → EDIP 18:08 → 4WST 18:42
PROVIDERS: ADMIT Family Medicine; ATTEND Family Medicine
DX: F20.2 Catatonic schizophrenia (principal); R25.2 Cramp and spasm; R40.4 Transient alteration of awareness; R56.9 Unspecified convulsions; G71.19 Other specified myotonic disorders; I10 Essential (primary) hypertension; G89.29 Other chronic pain; G43.909 Migraine, unspecified, not intractable, without status migrainosus; F44.9 Dissociative and conversion disorder, unspecified; Z79.899 Other long term (current) drug therapy; Z96.89 Presence of other specified functional implants
CPT/HCPCS: 36415; 80048; 82040; 83735; 84443; 84702; 85025; 93005; 96361; 96365; 96366; 96375; 96376; 99284; G0378; J1200; J1561; J2060; J2405; J7120; Q0163; Q0162

== ENCOUNTER 2020-09-30 10:51 | Observation (INO) | payer MEDICARE ==
[~2020-09-30] VITALS: Ht 157.5 cm; Wt 55.1 kg
--- NOTE | 2020-09-30 10:55 | NUR ---
PROVIDER IN ROOM WITH PT
[2020-09-30 11:37] LABS: BASOPHILS % (AUTO) 1 % (0-1); EOSINOPHILS % (AUTO) 2 % (1-7); LYMPHOCYTES % (AUTO) 21 % (22-44); MEAN CORPUSCULAR HEMOGLOBIN 29.9 pg (27.0-34.8); MEAN CORPUSCULAR HGB CONC 34.3 g/dL (32.4-35.8); MONOCYTES % (AUTO) 7 % (2-9); NEUTROPHILS % (AUTO) 70 % (42-75); PLATELET COUNT 200 x10^3/uL (130-400); RED BLOOD COUNT 4.74 x10^6/uL (3.82-5.3); RED CELL DISTRIBUTION WIDTH 12.4 % (9.6-15.2)
[2020-09-30 11:38] LABS: MD NO
[2020-09-30 11:44] LABS: ALBUMIN 4.2 g/dL (3.4-5.0); ANION GAP 4 mmol/L (5-15); CALCIUM 9.3 mg/dL (8.5-10.1); CHLORIDE 109 mmol/L (98-107)
--- NOTE | 2020-09-30 13:34 | NUR ---
attempt to use neuro tele machne- sound not working
--- NOTE | 2020-09-30 13:48 | NUR ---
hospitalist in room
[2020-09-30] MEDS ORDERED: hydrALAzine 20 MG/ML, 1ML IVPush PRN (14:00)
[2020-09-30] MEDS ORDERED: DIPHENHYDRAMINE 25 MG CAPSULE PO SCH (14:00)
[2020-09-30] MEDS ORDERED: IMMUNE GLOB IV SCH (14:00)
[2020-09-30] MEDS ORDERED: POLYETHYLENE GLYCOL 17 GM PACKET PO PRN (14:00)
[2020-09-30] MEDS ORDERED: DOCUSATE 100 MG CAPSULE PO PRN (14:00)
[2020-09-30] MEDS ORDERED: GUAIFENESIN/DM 200-20MG, 10ML UDC PO PRN (14:00)
[2020-09-30] MEDS ORDERED: PROMETHAZINE 25 MG/ML, 1ML IM PRN (14:00)
[2020-09-30] MEDS ORDERED: ONDANSETRON 2MG/ML, 2ML IVPush PRN (14:00)
--- NOTE | 2020-09-30 14:54 | NUR ---
TELE HEALTH CONSULT DONE
--- NOTE | 2020-09-30 15:20 | NUR ---
PT HAVING LOCAL SEIZURE- TWITCHING AND MOVEMENTS TO UPPER BODY
[2020-09-30] MEDS ORDERED: LORazepam 2 MG/ML, 1ML ONE (15:25)
[2020-09-30] MEDS ORDERED: LORazepam 2 MG/ML, 1ML IM ONE (15:30)
[2020-09-30] MEDS: LACTOBACILLUS CHEW TABLET PO SCH ×2 (16:00→21:00)
[2020-09-30] MEDS: IMMUNE GLOBULIN IV SCH (16:52)
[2020-09-30] MEDS: HEPARIN 5,000 UNITS/ML, 1ML SQ SCH (16:53)
[2020-09-30] MEDS ORDERED: LORazepam 2 MG/ML, 1ML IVPush ONE (17:00)
[2020-09-30] MEDS ORDERED: DIPHENHYDRAMINE 50 MG/ML, 1ML ONE (17:02)
[2020-09-30] MEDS: DIPHENHYDRAMINE 50 MG/ML, 1ML IVPush SCH ×2 (17:05→22:58)
[2020-09-30 19:54] VITALS: BP 128/98
[2020-09-30] MEDS: FAMOTIDINE 40 MG TABLET PO SCH (21:00)
[2020-10-01] MEDS ORDERED: EREN70AU SQ (00:36)
[2020-10-01] MEDS ORDERED: DIAZ5TAB4 PO (00:36)
[2020-10-01] MEDS ORDERED: CLON0.1T2 PO (00:36)
[2020-10-01] MEDS ORDERED: METO-290 PO (00:36)
[2020-10-01] MEDS ORDERED: PREG75CA68 PO (00:36)
[2020-10-01] MEDS ORDERED: KETO30VI27 IM (00:36)
[2020-10-01] MEDS ORDERED: EPIN0.3A3 IM (00:36)
[2020-10-01] MEDS ORDERED: TIZA4TAB2 PO (00:36)
[2020-10-01] MEDS ORDERED: SUMA100T4 PO (00:36)
[2020-10-01] MEDS ORDERED: LORA2VIA6 IV (00:36)
[2020-10-01] MEDS ORDERED: LIDO35.46 TP (00:36)
[2020-10-01] MEDS ORDERED: OMEP40CA42 PO (00:36)
[2020-10-01] MEDS ORDERED: ONDA8TAB16 PO (00:36)
[2020-10-01] MEDS ORDERED: IMMU10VI7 IV (00:36)
[2020-10-01] MEDS ORDERED: POTA20TA14 PO (00:36)
[2020-10-01] MEDS ORDERED: DIPH50VI10 IV (00:36)
[2020-10-01 00:47] VITALS: BP 163/95
[2020-10-01] MEDS: METOPROLOL SUCCINATE 100 MG TAB.ER.24H PO SCH ×2 (01:00→08:55)
[2020-10-01] MEDS: HEPARIN 5,000 UNITS/ML, 1ML SQ SCH ×3 (01:18→17:51)
[2020-10-01] MEDS: LACTOBACILLUS CHEW TABLET PO SCH ×3 (01:18→17:51)
[2020-10-01] MEDS: PREGABALIN 75 MG CAPSULE PO SCH ×3 (01:18→17:51)
[2020-10-01] MEDS: FAMOTIDINE 40 MG TABLET PO SCH (01:18)
[2020-10-01] MEDS: DIPHENHYDRAMINE 50 MG/ML, 1ML IVPush PRN ×2 (01:19→13:42)
[2020-10-01 01:57] VITALS: BP 147/98
[2020-10-01 06:00] VITALS: BP 141/97
[2020-10-01 07:04] LABS: BASOPHILS % (AUTO) 1 % (0-1); EOSINOPHILS % (AUTO) 2 % (1-7); LYMPHOCYTES % (AUTO) 16 % (22-44); MEAN CORPUSCULAR HEMOGLOBIN 30.2 pg (27.0-34.8); MEAN CORPUSCULAR HGB CONC 34.9 g/dL (32.4-35.8); MEAN PLATELET VOLUME 7.8 fL (7.4-10.4); MONOCYTES % (AUTO) 12 % (2-9); NEUTROPHILS % (AUTO) 70 % (42-75); PLATELET COUNT 137 x10^3/uL (130-400); RED BLOOD COUNT 4.18 x10^6/uL (3.82-5.3); RED CELL DISTRIBUTION WIDTH 12.5 % (9.6-15.2)
[2020-10-01 07:09] LABS: ALANINE AMINOTRANSFERASE 23 U/L (12-78); ALBUMIN 3.3 g/dL (3.4-5.0); ANION GAP 5 mmol/L (5-15); CALCIUM 8.4 mg/dL (8.5-10.1); CHLORIDE 107 mmol/L (98-107)
[2020-10-01 07:20] LABS: ALKALINE PHOSPHATASE 59 U/L (45-117); BILIRUBIN,TOTAL 0.8 mg/dL (0.2-1.0)
[2020-10-01 07:30] VITALS: BP 125/86
[2020-10-01 07:48] LABS: MD SCAN
[2020-10-01] MEDS ORDERED: OMEPRAZOLE 20 MG CAPSULE.DR PO SCH (08:30)
[2020-10-01] MEDS: LORazepam 2 MG/ML, 1ML IVPush PRN ×2 (08:58→13:42)
[2020-10-01] MEDS ORDERED: CHOLECALCIFEROL 1,000 UNIT TABLET PO SCH (09:00)
[2020-10-01] MEDS ORDERED: METOPROLOL TARTRATE 100 MG TAB PO SCH (09:00)
[2020-10-01] MEDS ORDERED: POTASSIUM CHLORIDE 20 MEQ TAB.ER.PRT PO SCH (09:00)
[2020-10-01 12:37] VITALS: BP 122/84
[2020-10-01] MEDS: IMMUNE GLOBULIN IV SCH (14:40)
[2020-10-01] MEDS ORDERED: PREGABALIN 75 MG CAPSULE ONE (17:49)
[2020-10-01] MEDS ORDERED: LACTOBACILLUS CHEW TABLET ONE (17:49)
[2020-10-01] MEDS ORDERED: HEPARIN 5,000 UNITS/ML, 1ML ONE (17:49)
[2020-10-01 19:26] VITALS: BP 89/56
== END 2020-10-01 21:50 | disposition home or self-care (01) ==
LOC: ED 11:23 → EDIP 12:46 → INTOOBSV 12:46 → 4EST 16:25 → UNDODISOB 10-01 17:12
PROVIDERS: ADMIT Hospitalist; ATTEND Hospitalist
DX: F20.2 Catatonic schizophrenia (principal); F48.8 Other specified nonpsychotic mental disorders; G71.19 Other specified myotonic disorders; I10 Essential (primary) hypertension; G89.29 Other chronic pain; G47.00 Insomnia, unspecified; G43.909 Migraine, unspecified, not intractable, without status migrainosus; Z79.899 Other long term (current) drug therapy; Z86.69 Personal history of other diseases of the nervous system and sense organs; Z96.89 Presence of other specified functional implants
CPT/HCPCS: 36415; 80048; 80053; 82040; 82962; 83735; 84100; 84443; 85025; 93005; 96365; 96366; 96372; 96375; 96376; 99284; G0378; J1200; J1561; J1644; J2060; 96367